=== PATIENT | female | born 2000 | race Caucasian/White ===

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

== ENCOUNTER 2021-02-09 20:36 | Emergency (ER) | payer OTHER ==
[2021-02-09 20:55] VITALS: TEMP 98.6
[2021-02-09] MEDS ORDERED: ACETAMINOPHEN TAB 325 MG TAB PO STA (21:36)
[2021-02-09] MEDS ORDERED: IBUPROFEN 600 MG TAB PO STA (21:36)
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
--- NOTE | 2021-02-09 21:41 | XR ---
EXAMINATION TYPE: XR lumbar spine 2 or 3V DATE OF EXAM: 02/09/2021 COMPARISON: 07/15/2020 HISTORY: Trauma. Back pain. TECHNIQUE: 3 views FINDINGS: Lumbar vertebra have normal alignment. Posterior elements are intact. Disc spaces are jona l. Sacroiliac joints appear normal. IMPRESSION: Normal lumbar spine. No change.
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
[2021-02-09] MEDS ORDERED: BACITRACIN OINT 1 EACH PACKET TOPICAL ONE (22:26)
[2021-02-09 22:51] VITALS: BP 128/78; PULSE 87; RESP 16
[2021-02-10] MEDS ORDERED: MUPIROCIN 2% OINT 22 GM TUBE TOPICAL ONE (22:30)
== END 2021-02-09 22:51 | disposition home or self-care (01) ==
LOC: EC 20:36
DX: S60.222A Contusion of left hand, initial encounter (principal); S39.012A Strain of muscle, fascia and tendon of lower back, initial encounter; Z88.0 Allergy status to penicillin; Z87.891 Personal history of nicotine dependence; Y04.0XXA Assault by unarmed brawl or fight, initial encounter
CPT/HCPCS: 72100; 73502; 99284

== ENCOUNTER 2021-03-11 23:09 | Emergency (ER) | payer OTHER ==
[2021-03-11 23:29] VITALS: RESP 18; TEMP 98
[2021-03-12] MEDS ORDERED: ONDANSETRON 4 MG/2 ML VIAL IVP STA (00:21)
[2021-03-12] MEDS ORDERED: SODIUM CHLORIDE 0.9% 1,000 ML IV STA (00:21)
[2021-03-12 00:36] LABS: Appearance,Urine Clear (Clear); Basophils # (A) 0.1 k/uL (0-0.2); Basophils % (A) 1 %; Bilirubin,Urine Negative (Negative); Blood,Urine Negative (Negative); Color,Urine Yellow; Eosinophils # (A) 0.2 k/uL (0-0.7); Eosinophils % (A) 2 %; Glucose,Urine (UA) Negative (Negative); HCT 40.5 % (34.0-46.0); Ketones,Urine Negative (Negative); Leukocyte Esterase,Urine Negative (Negative); Lymphocytes # (A) 3.7 k/uL (1.0-4.8); Lymphocytes % (A) 37 %; MCH 29.6 pg (25.0-35.0); MCHC 32.2 g/dL (31.0-37.0); MCV 91.8 fL (80.0-100.0); Monocytes # (A) 0.7 k/uL (0-1.0); Monocytes % (A) 7 %; Neutrophils # (A) 5.2 k/uL (1.3-7.7); Neutrophils % (A) 52 %; Nitrite,Urine Negative (Negative); Platelet Count 277 k/uL (150-450); Protein,Urine Trace (Negative); RBC 4.41 m/uL (3.80-5.40); RDW 12.5 % (11.5-15.5); Specific Gravity,Urine 1.022 (1.001-1.035); Urobilinogen,Urine <2.0 mg/dL (<2.0)
[2021-03-12 00:55] LABS: ALT 11 U/L (4-34); AST 23 U/L (14-36); African American GFR (CKD) >90 (>60 ml/min/1.73 sqM); Albumin 4.4 g/dL (3.5-5.0); Alkaline Phosphatase 58 U/L (38-126); Anion Gap 7 mmol/L; Blood Urea Nitrogen 6 mg/dL (7-17); Calcium 9.3 mg/dL (8.4-10.2); Carbon Dioxide 25 mmol/L (22-30); Chloride 106 mmol/L (98-107); Glucose 94 mg/dL (74-99); Lipase 46 U/L (23-300); Non-African American GFR(CKD) >90 (>60 ml/min/1.73 sqM); Potassium 4.1 mmol/L (3.5-5.1); Sodium 138 mmol/L (137-145); Total Bilirubin 0.3 mg/dL (0.2-1.3); Total Protein 7.2 g/dL (6.3-8.2)
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
[2021-03-12] MEDS ORDERED: ONDANSETRON 4 MG ODT STARTER PACK 2 TAB BTL PO STA (01:07)
[2021-03-12] MEDS ORDERED: diphenhydrAMINE 50 MG/ML 1 ML VIAL IVP STA (01:10)
[2021-03-12] MEDS ORDERED: METOCLOPRAMIDE 5 MG/ML 2 ML VIAL IVP STA (01:10)
[2021-03-12 01:29] VITALS: BP 99/64; PULSE 61
== END 2021-03-12 01:29 | disposition home or self-care (01) ==
LOC: EC 23:09
DX: R11.2 Nausea with vomiting, unspecified (principal); R53.1 Weakness; R42 Dizziness and giddiness; F41.9 Anxiety disorder, unspecified; F32.9 Major depressive disorder, single episode, unspecified; F17.200 Nicotine dependence, unspecified, uncomplicated; Z20.822 Contact with and (suspected) exposure to COVID-19; Z88.0 Allergy status to penicillin
CPT/HCPCS: 36415; 80053; 83690; 85025; 81003; 81025; 87635; 99284; 96374; 96375 ×2; J1200; J2765; J2405; S0119

== ENCOUNTER 2021-03-22 12:18 | Emergency (ER) | payer OTHER ==
[2021-03-22 13:02] VITALS: TEMP 97.6
--- NOTE | 2021-03-22 13:44 | ED ---
General Adult HPI - General Chief complaint: Dizziness Stated complaint: syncope Time Seen by Provider: 03/22/21 13:33 Source: patient, family, RN notes reviewed Mode of arrival: wheelchair Limitations: no limitations - History of Present Illness Initial comments: Patient is a pleasant 20-year-old female presenting to the emergency department following syncopal episode. Patient was outside this morning holding her horse when she suddenly felt lightheaded and dizzy and then did pass out. This was witnessed. Patient did strike the back of her head on cement. Patient did have some ringing in her ears. Patient does have some discomfort in the back of her head. No neck or back pain. No chest pain or dyspnea. No abdominal pain. Patient has had some nausea and dry heaves following this. Patient has had recent ER visit for nausea and vomiting. Patient states she has had decreased oral intake recently. Patient does feel somewhat dehydrated. Patient states she did have similar symptoms around age 14 also associated with dehydration and stress. No weakness. - Related Data Previous Rx's Medication Instructions Recorded Cyclobenzaprine [Flexeril] 10 mg PO TID #14 tab 08/11/20 Ibuprofen 800 mg PO Q6HR PRN #20 tablet 08/11/20 Ibuprofen [Motrin] 600 mg PO Q8HR PRN #20 tab 02/09/21 Ondansetron [Zofran ODT] 4 mg PO Q8HR PRN #10 tab 03/12/21 Allergies Allergy/AdvReac Type Severity Reaction Status Date / Time Penicillins Allergy Unknown Verified 03/22/21 13:02 Review of Systems ROS Statement: Those systems with pertinent positive or pertinent negative responses have been documented in the HPI. ROS Other: All systems not noted in ROS Statement are negative. Constitutional: Denies: fever Eyes: Denies: eye pain ENT: Denies: ear pain Respiratory: Denies: cough Cardiovascular: Denies: chest pain Endocrine: Denies: fatigue Gastrointestinal: Reports: nausea. Denies: abdominal pain Genitourinary: Denies: dysuria Musculoskeletal: Denies: back pain Skin: Denies: rash Neurological: Reports: as per HPI. Denies: weakness, confusion Past Medical History Past Medical History: No Reported History Additional Past Medical History / Comment(s): Concussion, compression fracture of lumbar vertebrae History of Any Multi-Drug Resistant Organisms: None Reported Past Surgical History: No Surgical Hx Reported Additional Past Surgical History / Comment(s): strabismus eye surgery Past Psychological History: Anxiety, Depression Smoking Status: Current some day smoker Past Alcohol Use History: None Reported Past Drug Use History: None Reported General Exam Limitations: no limitations General appearance: alert, in no apparent distress Head exam: Present: normocephalic, other (Mild tenderness occipital) Eye exam: Present: normal appearance, PERRL, EOMI. Absent: nystagmus ENT exam: Present: normal oropharynx Neck exam: Present: normal inspection. Absent: tenderness Respiratory exam: Present: normal lung sounds bilaterally Cardiovascular Exam: Present: regular rate, normal rhythm GI/Abdominal exam: Present: soft. Absent: distended, tenderness, guarding, rebound, rigid Extremities exam: Present: normal inspection, full ROM. Absent: tenderness Back exam: Absent: tenderness Neurological exam: Present: alert, CN II-XII intact. Absent: motor sensory deficit Expanded Neurological exam: Present: protecting the airway Speech: Present: fluid speech Cranial nerves: EOM's Intact: Normal, Facial Sensation: Normal Sensory exam: Upper Extremity Light Touch: Normal, Lower Extremity Light Touch: Normal Motor strength exam: RUE: 5, LUE: 5, RLE: 5, LLE: 5 Eye Response: (4) open spontaneously Motor Response: (6) obeys commands Verbal Response: (5) oriented Psychiatric exam: Present: normal affect, normal mood Skin exam: Present: normal color Course Vital Signs 03/22/21 03/22/21 03/22/21 12:55 14:07 14:43 Temperature 97.6 F Pulse Rate 104 H 70 77 Respiratory 18 16 16 Rate Blood Pressure 94/62 107/59 111/68 O2 Sat by Pulse 100 100 98 Oximetry EKG Findings - EKG Comments: EKG Findings:: Normal sinus rhythm with rate of 68. PA 124. QRS 84. QT 36. QTc 410. Normal axis. Normal QRS. No acute ST change. Medical Decision Making - Medical Decision Making Patient reevaluated and feeling better following fluid bolus. Patient and family are updated on results and need for follow-up. Patient states Dr. Handy did notify her she would be her doctor to age 22. - Lab Data Result diagrams: 03/22/21 13:56 03/22/21 13:56 Lab Results 03/22/21 03/22/21 03/22/21 Range/Units 13:56 13:56 13:56 WBC 10.4 (4.0-11.0) k/uL RBC 5.00 (3.80-5.40) m/uL Hgb 14.9 (11.4-16.0) gm/dL Hct 45.6 (34.0-46.0) % MCV 91.2 (80.0-100.0) fL MCH 29.7 (25.0-35.0) pg MCHC 32.6 (31.0-37.0) g/dL RDW 12.4 (11.5-15.5) % Plt Count 250 (150-450) k/uL MPV 6.6 Neutrophils % 72 % Lymphocytes % 21 % Monocytes % 4 % Eosinophils % 1 % Basophils % 1 % Neutrophils # 7.5 (1.3-7.7) k/uL Lymphocytes # 2.1 (1.0-4.8) k/uL Monocytes # 0.5 (0-1.0) k/uL Eosinophils # 0.1 (0-0.7) k/uL Basophils # 0.1 (0-0.2) k/uL PT 10.1 (9.0-12.0) sec INR 0.9 (<1.2) APTT 22.6 (22.0-30.0) sec Sodium 141 (137-145) mmol/L Potassium 4.8 (3.5-5.1) mmol/L Chloride 105 (98-107) mmol/L Carbon Dioxide 27 (22-30) mmol/L Anion Gap 9 mmol/L BUN 8 (7-17) mg/dL Creatinine 0.62 (0.52-1.04) mg/dL Est GFR (CKD-EPI)AfAm >90 (>60 ml/min/1.73 sqM) Est GFR (CKD-EPI)NonAf >90 (>60 ml/min/1.73 sqM) Glucose 91 (74-99) mg/dL Calcium 9.8 (8.4-10.2) mg/dL Magnesium 2.2 (1.6-2.3) mg/dL Total Bilirubin 0.5 (0.2-1.3) mg/dL AST 25 (14-36) U/L ALT 13 (4-34) U/L Alkaline Phosphatase 52 (38-126) U/L Troponin I (0.000-0.034) ng/mL Total Protein 8.2 (6.3-8.2) g/dL Albumin 4.9 (3.5-5.0) g/dL HCG, Qual Not Detected 03/22/21 Range/Units 13:56 WBC (4.0-11.0) k/uL RBC (3.80-5.40) m/uL Hgb (11.4-16.0) gm/dL Hct (34.0-46.0) % MCV (80.0-100.0) fL MCH (25.0-35.0) pg MCHC (31.0-37.0) g/dL RDW (11.5-15.5) % Plt Count (150-450) k/uL MPV Neutrophils % % Lymphocytes % % Monocytes % % Eosinophils % % Basophils % % Neutrophils # (1.3-7.7) k/uL Lymphocytes # (1.0-4.8) k/uL Monocytes # (0-1.0) k/uL Eosinophils # (0-0.7) k/uL Basophils # (0-0.2) k/uL PT (9.0-12.0) sec INR (<1.2) APTT (22.0-30.0) sec Sodium (137-145) mmol/L Potassium (3.5-5.1) mmol/L Chloride (98-107) mmol/L Carbon Dioxide (22-30) mmol/L Anion Gap mmol/L BUN (7-17) mg/dL Creatinine (0.52-1.04) mg/dL Est GFR (CKD-EPI)AfAm (>60 ml/min/1.73 sqM) Est GFR (CKD-EPI)NonAf (>60 ml/min/1.73 sqM) Glucose (74-99) mg/dL Calcium (8.4-10.2) mg/dL Magnesium (1.6-2.3) mg/dL Total Bilirubin (0.2-1.3) mg/dL AST (14-36) U/L ALT (4-34) U/L Alkaline Phosphatase (38-126) U/L Troponin I <0.012 (0.000-0.034) ng/mL Total Protein (6.3-8.2) g/dL Albumin (3.5-5.0) g/dL HCG, Qual - Radiology Data Radiology results: report reviewed (Computed tomography scan of the brain reveals no acute process), image reviewed (Chest x-ray shows no acute process) Disposition Clinical Impression: Syncope Disposition: HOME SELF-CARE Condition: Stable Instructions (If sedation given, give patient instructions): Syncope (ED) Additional Instructions: Please do follow-up with your primary care physician in the next day or 2 for recheck. Avoid any activities that could cause injury including riding horses or driving a vehicle or other similar until released by your doctor. Return for passing out, headache or confusion, weakness, worsening or change in symptoms or any other concerns. Is patient prescribed a controlled substance at d/c from ED?: No Referrals: Nichelle Handy MD [Primary Care Provider] - 1-2 days Time of Disposition: 15:10
[2021-03-22 14:04] LABS: Basophils # (A) 0.1 k/uL (0-0.2); Basophils % (A) 1 %; Eosinophils # (A) 0.1 k/uL (0-0.7); Eosinophils % (A) 1 %; HCT 45.6 % (34.0-46.0); HGB 14.9 gm/dL (11.4-16.0); Lymphocytes # (A) 2.1 k/uL (1.0-4.8); Lymphocytes % (A) 21 %; MCH 29.7 pg (25.0-35.0); MCHC 32.6 g/dL (31.0-37.0); MCV 91.2 fL (80.0-100.0); Mean Platelet Volume 6.6; Monocytes # (A) 0.5 k/uL (0-1.0); Monocytes % (A) 4 %; Neutrophils # (A) 7.5 k/uL (1.3-7.7); Neutrophils % (A) 72 %; Platelet Count 250 k/uL (150-450); RDW 12.4 % (11.5-15.5); WBC 10.4 k/uL (4.0-11.0)
[2021-03-22] MEDS: SODIUM CHLORIDE 0.9% 1,000 ML IV STA (14:06)
[2021-03-22 14:08] VITALS: RESP 16
[2021-03-22 14:12] LABS: HCG,Qualitative Serum Not Detected
[2021-03-22 14:15] LABS: ALT 13 U/L (4-34); AST 25 U/L (14-36); African American GFR (CKD) >90 (>60 ml/min/1.73 sqM); Albumin 4.9 g/dL (3.5-5.0); Alkaline Phosphatase 52 U/L (38-126); Anion Gap 9 mmol/L; Blood Urea Nitrogen 8 mg/dL (7-17); Calcium 9.8 mg/dL (8.4-10.2); Carbon Dioxide 27 mmol/L (22-30); Chloride 105 mmol/L (98-107); Glucose 91 mg/dL (74-99); Magnesium 2.2 mg/dL (1.6-2.3); Non-African American GFR(CKD) >90 (>60 ml/min/1.73 sqM); Potassium 4.8 mmol/L (3.5-5.1); Sodium 141 mmol/L (137-145); Total Bilirubin 0.5 mg/dL (0.2-1.3); Total Protein 8.2 g/dL (6.3-8.2)
[2021-03-22 14:16] LABS: INR 0.9 (<1.2); Partial Thromboplastin Time 22.6 sec (22.0-30.0); Prothrombin Time 10.1 sec (9.0-12.0)
--- NOTE | 2021-03-22 14:29 | CT ---
EXAMINATION TYPE: CT brain wo con DATE OF EXAM: 03/22/2021 COMPARISON: November 22, 2020 HISTORY: syncope CT DLP: 1040.4 mGycm. Automated Exposure Control for Dose Reduction was Utilized. TECHNIQUE: CT scan of the head is performed without contrast. FINDINGS: There is no acute intracranial hemorrhage, mass effect, or midline shift identified. The ventricles and sulci are within normal limits in size. Lanier-white matter differentiation is maintain ed. The calvarium is intact. The globes are intact and the visualized sinuses are clear. Nasal sept um deviated to left of midline. IMPRESSION: Unremarkable study. No significant change from prior.
--- NOTE | 2021-03-22 14:31 | XR ---
EXAMINATION TYPE: XR chest 2V DATE OF EXAM: 03/22/2021 COMPARISON: Chest x-ray dated 08/11/2020 HISTORY: Syncope TECHNIQUE: Frontal and lateral views of the chest are obtained. FINDINGS: There is no focal air space opacity, pleural effusion, or pneumothorax seen. The cardiac silhouette size is within normal limits. There are overlying leads. There is a slight spinal curvatu re. The osseous structures are intact. IMPRESSION: No acute cardiopulmonary process.
[2021-03-22 14:44] VITALS: BP 111/68; PULSE 77
== END 2021-03-22 15:19 | disposition home or self-care (01) ==
LOC: EC 12:18
DX: R55 Syncope and collapse (principal); F32.9 Major depressive disorder, single episode, unspecified; F17.200 Nicotine dependence, unspecified, uncomplicated
CPT/HCPCS: 70450; 71046; 80053; 83735; 84484; 84703; 85025; 85610; 85730; 93005; 96360; 99284

== ENCOUNTER 2021-04-06 03:44 | Emergency (ER) | payer OTHER ==
[2021-04-06 03:54] VITALS: RESP 18; TEMP 98.1
[2021-04-06] MEDS ORDERED: cefTRIAXone 250 MG VIAL IM STA (04:41)
[2021-04-06] MEDS ORDERED: AZITHROMYCIN 250 MG TAB PO STA (04:47)
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
[2021-04-06 05:44] VITALS: BP 121/64; PULSE 68
== END 2021-04-06 05:44 | disposition home or self-care (01) ==
LOC: EC 03:44
DX: T74.21XA Adult sexual abuse, confirmed, initial encounter (principal); F17.200 Nicotine dependence, unspecified, uncomplicated; Z88.0 Allergy status to penicillin
CPT/HCPCS: 81025; 99284; 96372; J0696

== ENCOUNTER → 2021-08-01 | Outpatient (CLI) | payer OTHER ==
[2021-08-02 10:34] LABS: HIV 2 AB Non-Reactive (Non-Reactive); HIV AB P24 Non-Reactive (Non-Reactive); HIV P24 AG Non-Reactive (Non-Reactive)
== END | disposition home or self-care (01) ==
LOC: LABWHC1 12:46
PROVIDERS: ATTEND Pediatrics Adolescent Medicine
DX: T76.21XD Adult sexual abuse, suspected, subsequent encounter (principal)
CPT/HCPCS: 36415; 87390

== ENCOUNTER 2021-09-20 20:40 | Emergency (ER) | payer OTHER ==
[2021-09-20 21:52] VITALS: BP 122/86; PULSE 79; RESP 22; TEMP 98.8
[2021-09-20 22:21] LABS: Appearance,Urine Clear (Clear); Bacteria,Urine Rare /hpf; Bilirubin,Urine Negative (Negative); Blood,Urine Negative (Negative); Color,Urine Yellow; Glucose,Urine (UA) Negative (Negative); Ketones,Urine 1+ (Negative); Leukocyte Esterase,Urine Small (Negative); Mucus,Urine Many /hpf; Nitrite,Urine Negative (Negative); PH, Urine 6.5 (5.0-8.0); Protein,Urine Trace (Negative); RBC,Urine 1 /hpf (0-5); Specific Gravity,Urine 1.032 (1.001-1.035); Squamous Epithelial Cell,Urine 6 /hpf (0-4); Urobilinogen,Urine <2.0 mg/dL (<2.0); WBC,Urine 2 /hpf (0-5)
== END 2021-09-21 01:22 | disposition left against medical advice (07) ==
LOC: EC 20:40
DX: R68.83 Chills (without fever) (principal); Z20.822 Contact with and (suspected) exposure to COVID-19; Z53.21 Procedure and treatment not carried out due to patient leaving prior to being seen by health care provider
CPT/HCPCS: 81001; 81025; 87635; 99499

== ENCOUNTER 2021-12-19 22:57 | Emergency (ER) | payer OTHER ==
[2021-12-19 23:12] VITALS: RESP 16; TEMP 99
[2021-12-19 23:51] LABS: Appearance,Urine Cloudy (Clear); Bacteria,Urine Rare /hpf; Bilirubin,Urine Negative (Negative); Blood,Urine Negative (Negative); Color,Urine Yellow; Glucose,Urine (UA) Negative (Negative); Ketones,Urine Negative (Negative); Leukocyte Esterase,Urine Negative (Negative); Mucus,Urine Many /hpf; Nitrite,Urine Negative (Negative); Protein,Urine Trace (Negative); RBC,Urine 1 /hpf (0-5); Specific Gravity,Urine 1.026 (1.001-1.035); Squamous Epithelial Cell,Urine 12 /hpf (0-4); WBC,Urine 2 /hpf (0-5)
[2021-12-20] MEDS ORDERED: SODIUM CHLORIDE 0.9% 1,000 ML IV STA (00:56)
[2021-12-20] MEDS ORDERED: ONDANSETRON 4 MG/2 ML VIAL IVP STA (00:56)
--- NOTE | 2021-12-20 01:47 | US ---
EXAMINATION TYPE: US pelvic complete DATE OF EXAM: 12/20/2021 COMPARISON: NONE CLINICAL HISTORY: left sided pelvic pain. LLQ pain TECHNIQUE: Transabdominal (TA Date of LMP: 11/12/21 EXAM MEASUREMENTS: Uterus: 7.4 x 2.5 x 4.5 cm Endometrial Stripe: 1.0 cm Right Ovary: 2.5 x 2.4 x 2.4 cm Left Ovary: 2.5 x 1.7 x 2.0 cm 1. Uterus: Anteverted wnl 2. Endometrium: wnl 3. Right Ovary: Appears wnl; venous and arterial flow noted 4. Left Ovary: Appears wnl; venous and arterial flow noted Spectral, color and waveform doppler imaging shows good arterial and venous flow within the ovaries ; there is no evidence for ovarian torsion. 5. Bilateral Adnexa: wnl 6. Posterior cul-de-sac: wnl IMPRESSION: Normal uterus and endometrium. No evidence of ovarian torsion. No adnexal mass..
[2021-12-20 01:51] LABS: Basophils # (A) 0.1 k/uL (0-0.2); Basophils % (A) 1 %; Eosinophils # (A) 0.3 k/uL (0-0.7); Eosinophils % (A) 3 %; HCT 40.2 % (34.0-46.0); HGB 13.9 gm/dL (11.4-16.0); Lymphocytes # (A) 1.7 k/uL (1.0-4.8); Lymphocytes % (A) 16 %; MCH 32.6 pg (25.0-35.0); MCHC 34.5 g/dL (31.0-37.0); MCV 94.6 fL (80.0-100.0); Mean Platelet Volume 6.9; Monocytes # (A) 0.7 k/uL (0-1.0); Monocytes % (A) 6 %; Neutrophils % (A) 74 %; Platelet Count 195 k/uL (150-450); RBC 4.25 m/uL (3.80-5.40); RDW 11.6 % (11.5-15.5); WBC 10.9 k/uL (4.0-11.0)
[2021-12-20 02:02] LABS: ALT 15 U/L (4-34); AST 28 U/L (14-36); African American GFR (CKD) >90 (>60 ml/min/1.73 sqM); Albumin 4.2 g/dL (3.5-5.0); Alkaline Phosphatase 57 U/L (38-126); Amylase 47 U/L (30-110); Anion Gap 9 mmol/L; Blood Urea Nitrogen 8 mg/dL (7-17); Calcium 8.6 mg/dL (8.4-10.2); Carbon Dioxide 24 mmol/L (22-30); Chloride 102 mmol/L (98-107); Glucose 90 mg/dL (74-99); Lipase 40 U/L (23-300); Non-African American GFR(CKD) >90 (>60 ml/min/1.73 sqM); Potassium 4.2 mmol/L (3.5-5.1); Sodium 135 mmol/L (137-145); Total Bilirubin 0.6 mg/dL (0.2-1.3); Total Protein 7.5 g/dL (6.3-8.2)
[2021-12-20] MEDS ORDERED: KETOROLAC 15 MG/ML 1 ML VIAL IVP STA (02:31)
[2021-12-20 02:41] LABS: Influenza A Not Detected (Not Detectd); Influenza B Not Detected (Not Detectd)
[2021-12-20 03:12] LABS: Erythrocyte Sedimentation Rate 4 mm/hr (0-20)
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
[2021-12-20 03:41] VITALS: BP 109/79; PULSE 78
== END 2021-12-20 03:39 | disposition home or self-care (01) ==
LOC: EC 22:57
DX: R10.32 Left lower quadrant pain (principal); F32.A Depression, unspecified; F41.9 Anxiety disorder, unspecified; Z87.891 Personal history of nicotine dependence; Z79.899 Other long term (current) drug therapy
CPT/HCPCS: 36415; 80053; 85652; 82150; 83690; 85025; 81001; 81025; 87808; 87491; 87591; 87636; 93975; 76856; 99284; 96374; 96375; 96361 ×2; J2405; J1885

== ENCOUNTER 2021-12-22 06:02 | Emergency (ER) | payer OTHER ==
[2021-12-22 06:12] VITALS: RESP 18; TEMP 98.3
[2021-12-22] MEDS ORDERED: SODIUM CHLORIDE 0.9% 2,000 ML IV STA (06:25)
[2021-12-22] MEDS ORDERED: KETOROLAC 15 MG/ML 1 ML VIAL IVP STA (06:25)
[2021-12-22] MEDS ORDERED: FAMOTIDINE 20 MG/2 ML VIAL IV STA (06:26)
--- NOTE | 2021-12-22 06:31 | ED ---
Abdominal Pain HPI - General Chief Complaint: Abdominal Pain Stated Complaint: Abdominal Pain Time Seen by Provider: 12/22/21 06:04 Source: patient, EMS, RN notes reviewed Mode of arrival: EMS Limitations: no limitations - History of Present Illness Initial Comments: 21-year-old female presents emergency Department with chief complaint of nausea vomiting diarrhea. Patient states that she had multiple episodes of emesis morning. She states it which bile at this time. She states she had diffuse abdominal cramping states is no localized pain. Patient states she did receive Zofran by EMS which she feels greatly improved. Patient's was seen here 3 days ago after she had some left lower quadrant abdominal pain and nausea. Patient had complete workup with no acute findings. Patient states she did have a bunch of diarrhea this morning denies any melena hematochezia. Patient offers no complaints no prior abdominal surgeries denies any chance . - Related Data Previous Rx's Medication Instructions Recorded Cyclobenzaprine [Flexeril] 10 mg PO TID #14 tab 08/11/20 Ibuprofen 800 mg PO Q6HR PRN #20 tablet 08/11/20 Ibuprofen [Motrin] 600 mg PO Q8HR PRN #20 tab 02/09/21 Ondansetron [Zofran ODT] 4 mg PO Q8HR PRN #10 tab 03/12/21 levonorgestreL [Plan B One-Step] 1.5 mg PO ONCE #1 tablet 04/06/21 Ondansetron Odt [Zofran Odt] 4 mg PO Q8HR PRN #10 tab 12/22/21 Allergies Allergy/AdvReac Type Severity Reaction Status Date / Time Penicillins Allergy Unknown Verified 12/19/21 23:12 Review of Systems ROS Statement: Those systems with pertinent positive or pertinent negative responses have been documented in the HPI. ROS Other: All systems not noted in ROS Statement are negative. Past Medical History Past Medical History: No Reported History Additional Past Medical History / Comment(s): Concussion, compression fracture of lumbar vertebrae History of Any Multi-Drug Resistant Organisms: None Reported Past Surgical History: No Surgical Hx Reported Additional Past Surgical History / Comment(s): strabismus eye surgery Past Psychological History: Anxiety, Depression Smoking Status: Current some day smoker Past Alcohol Use History: Occasional Past Drug Use History: Marijuana General Exam Limitations: no limitations General appearance: alert, in no apparent distress Head exam: Present: atraumatic, normocephalic, normal inspection Eye exam: Present: normal appearance, PERRL, EOMI. Absent: scleral icterus, conjunctival injection, periorbital swelling ENT exam: Present: normal exam, mucous membranes moist Neck exam: Present: normal inspection, full ROM. Absent: tenderness, meningismus, lymphadenopathy Respiratory exam: Present: normal lung sounds bilaterally. Absent: respiratory distress, wheezes, rales, rhonchi, stridor Cardiovascular Exam: Present: regular rate, normal rhythm, normal heart sounds. Absent: systolic murmur, diastolic murmur, rubs, gallop, clicks GI/Abdominal exam: Present: soft, tenderness (Minimal diffuse), normal bowel sounds. Absent: distended, guarding, rebound, rigid Back exam: Absent: CVA tenderness (R), CVA tenderness (L) Neurological exam: Present: alert Skin exam: Present: warm, dry, intact, normal color. Absent: rash Course Vital Signs 12/22/21 12/22/21 06:08 07:05 Temperature 98.3 F Pulse Rate 96 93 Respiratory 18 18 Rate Blood Pressure 114/76 138/71 O2 Sat by Pulse 99 98 Oximetry Medical Decision Making - Medical Decision Making Patient's labs are essentially unremarkable. Patient feels improved after antiemetics and fluids. Patient discharged with Zofran patient has gastroenteritis return parameters were discussed. - Lab Data Result diagrams: 12/22/21 06:36 12/22/21 06:36 Lab Results 12/22/21 12/22/21 12/22/21 Range/Units 06:36 06:36 06:42 WBC 9.2 (4.0-11.0) k/uL RBC 4.41 (3.80-5.40) m/uL Hgb 13.8 (11.4-16.0) gm/dL Hct 41.4 (34.0-46.0) % MCV 93.9 (80.0-100.0) fL MCH 31.3 (25.0-35.0) pg MCHC 33.3 (31.0-37.0) g/dL RDW 11.7 (11.5-15.5) % Plt Count 188 (150-450) k/uL MPV 7.1 Neutrophils % 72 % Lymphocytes % 13 % Monocytes % 9 % Eosinophils % 4 % Basophils % 0 % Neutrophils # 6.6 (1.3-7.7) k/uL Lymphocytes # 1.2 (1.0-4.8) k/uL Monocytes # 0.9 (0-1.0) k/uL Eosinophils # 0.3 (0-0.7) k/uL Basophils # 0.0 (0-0.2) k/uL Sodium 136 L (137-145) mmol/L Potassium 3.6 (3.5-5.1) mmol/L Chloride 106 (98-107) mmol/L Carbon Dioxide 23 (22-30) mmol/L Anion Gap 7 mmol/L BUN 5 L (7-17) mg/dL Creatinine 0.52 (0.52-1.04) mg/dL Est GFR (CKD-EPI)AfAm >90 (>60 ml/min/1.73 sqM) Est GFR (CKD-EPI)NonAf >90 (>60 ml/min/1.73 sqM) Glucose 115 H (74-99) mg/dL Calcium 8.2 L (8.4-10.2) mg/dL Total Bilirubin 0.3 (0.2-1.3) mg/dL AST 25 (14-36) U/L ALT 19 (4-34) U/L Alkaline Phosphatase 52 (38-126) U/L Total Protein 6.4 (6.3-8.2) g/dL Albumin 3.4 L (3.5-5.0) g/dL Lipase 21 L (23-300) U/L Urine Color Yellow Urine Appearance Cloudy H (Clear) Urine pH 6.5 (5.0-8.0) Ur Specific [place] 1.020 (1.001-1.035) Urine Protein Trace H (Negative) Urine Glucose (UA) Negative (Negative) Urine Ketones Negative (Negative) Urine Blood Negative (Negative) Urine Nitrite Negative (Negative) Urine Bilirubin Negative (Negative) Urine Urobilinogen <2.0 (<2.0) mg/dL Ur Leukocyte Esterase Trace H (Negative) Urine RBC 2 (0-5) /hpf Urine WBC 12 H (0-5) /hpf Ur Squamous Epith Cells 10 H (0-4) /hpf Urine Bacteria Rare H (None) /hpf Urine Mucus Few H (None) /hpf Urine HCG, Qual (Not Detectd) 12/22/21 Range/Units 06:42 WBC (4.0-11.0) k/uL RBC (3.80-5.40) m/uL Hgb (11.4-16.0) gm/dL Hct (34.0-46.0) % MCV (80.0-100.0) fL MCH (25.0-35.0) pg MCHC (31.0-37.0) g/dL RDW (11.5-15.5) % Plt Count (150-450) k/uL MPV Neutrophils % % Lymphocytes % % Monocytes % % Eosinophils % % Basophils % % Neutrophils # (1.3-7.7) k/uL Lymphocytes # (1.0-4.8) k/uL Monocytes # (0-1.0) k/uL Eosinophils # (0-0.7) k/uL Basophils # (0-0.2) k/uL Sodium (137-145) mmol/L Potassium (3.5-5.1) mmol/L Chloride (98-107) mmol/L Carbon Dioxide (22-30) mmol/L Anion Gap mmol/L BUN (7-17) mg/dL Creatinine (0.52-1.04) mg/dL Est GFR (CKD-EPI)AfAm (>60 ml/min/1.73 sqM) Est GFR (CKD-EPI)NonAf (>60 ml/min/1.73 sqM) Glucose (74-99) mg/dL Calcium (8.4-10.2) mg/dL Total Bilirubin (0.2-1.3) mg/dL AST (14-36) U/L ALT (4-34) U/L Alkaline Phosphatase (38-126) U/L Total Protein (6.3-8.2) g/dL Albumin (3.5-5.0) g/dL Lipase (23-300) U/L Urine Color Urine Appearance (Clear) Urine pH (5.0-8.0) Ur Specific [place] (1.001-1.035) Urine Protein (Negative) Urine Glucose (UA) (Negative) Urine Ketones (Negative) Urine Blood (Negative) Urine Nitrite (Negative) Urine Bilirubin (Negative) Urine Urobilinogen (<2.0) mg/dL Ur Leukocyte Esterase (Negative) Urine RBC (0-5) /hpf Urine WBC (0-5) /hpf Ur Squamous Epith Cells (0-4) /hpf Urine Bacteria (None) /hpf Urine Mucus (None) /hpf Urine HCG, Qual Not Detected (Not Detectd) Disposition Clinical Impression: Gastroenteritis Disposition: HOME SELF-CARE Condition: Stable Instructions (If sedation given, give patient instructions): Gastroenteritis (ED) Additional Instructions: Please return to the Emergency Department if symptoms worsen or any other concerns. Prescriptions: Ondansetron Odt [Zofran Odt] 4 mg PO Q8HR PRN #10 tab PRN Reason: Nausea Is patient prescribed a controlled substance at d/c from ED?: No Referrals: Nichelle Handy MD [Primary Care Provider] - 1-2 days Time of Disposition: 08:05
[2021-12-22 06:51] LABS: Basophils % (A) 0 %; Eosinophils # (A) 0.3 k/uL (0-0.7); Eosinophils % (A) 4 %; HCT 41.4 % (34.0-46.0); HGB 13.8 gm/dL (11.4-16.0); Lymphocytes # (A) 1.2 k/uL (1.0-4.8); Lymphocytes % (A) 13 %; MCH 31.3 pg (25.0-35.0); MCHC 33.3 g/dL (31.0-37.0); MCV 93.9 fL (80.0-100.0); Mean Platelet Volume 7.1; Monocytes # (A) 0.9 k/uL (0-1.0); Monocytes % (A) 9 %; Neutrophils # (A) 6.6 k/uL (1.3-7.7); Neutrophils % (A) 72 %; Platelet Count 188 k/uL (150-450); RBC 4.41 m/uL (3.80-5.40); RDW 11.7 % (11.5-15.5); WBC 9.2 k/uL (4.0-11.0)
[2021-12-22 07:07] VITALS: BP 138/71; PULSE 93
[2021-12-22 07:07] LABS: ALT 19 U/L (4-34); AST 25 U/L (14-36); African American GFR (CKD) >90 (>60 ml/min/1.73 sqM); Albumin 3.4 g/dL (3.5-5.0); Alkaline Phosphatase 52 U/L (38-126); Anion Gap 7 mmol/L; Blood Urea Nitrogen 5 mg/dL (7-17); Calcium 8.2 mg/dL (8.4-10.2); Carbon Dioxide 23 mmol/L (22-30); Chloride 106 mmol/L (98-107); Glucose 115 mg/dL (74-99); Lipase 21 U/L (23-300); Non-African American GFR(CKD) >90 (>60 ml/min/1.73 sqM); Potassium 3.6 mmol/L (3.5-5.1); Sodium 136 mmol/L (137-145); Total Bilirubin 0.3 mg/dL (0.2-1.3); Total Protein 6.4 g/dL (6.3-8.2)
[2021-12-22 07:16] LABS: Appearance,Urine Cloudy (Clear); Bacteria,Urine Rare /hpf; Bilirubin,Urine Negative (Negative); Blood,Urine Negative (Negative); Color,Urine Yellow; Glucose,Urine (UA) Negative (Negative); Ketones,Urine Negative (Negative); Leukocyte Esterase,Urine Trace (Negative); Mucus,Urine Few /hpf; Nitrite,Urine Negative (Negative); PH, Urine 6.5 (5.0-8.0); Protein,Urine Trace (Negative); RBC,Urine 2 /hpf (0-5); Squamous Epithelial Cell,Urine 10 /hpf (0-4); Urobilinogen,Urine <2.0 mg/dL (<2.0); WBC,Urine 12 /hpf (0-5)
[2021-12-22] MEDS ORDERED: diphenhydrAMINE 50 MG/ML 1 ML VIAL IVP STA (07:20)
[2021-12-22] MEDS ORDERED: METOCLOPRAMIDE 5 MG/ML 2 ML VIAL IVP STA (07:20)
== END 2021-12-22 08:51 | disposition home or self-care (01) ==
LOC: EC 06:02
DX: K52.9 Noninfective gastroenteritis and colitis, unspecified (principal); F41.9 Anxiety disorder, unspecified; F32.A Depression, unspecified; F17.200 Nicotine dependence, unspecified, uncomplicated; F12.90 Cannabis use, unspecified, uncomplicated; Z88.0 Allergy status to penicillin
CPT/HCPCS: 99284; 96374; 96375 ×3; 36415; 80053; 83690; 85025; 81001; 81025; 87086; J1200; J2765; J1885

== ENCOUNTER → 2022-05-29 | Outpatient (CLI) | payer OTHER ==
--- NOTE | 2022-05-29 15:01 | XR ---
EXAMINATION TYPE: XR forearm RT DATE OF EXAM: 05/29/2022 COMPARISON: NONE HISTORY: Pain Two views of the forearm demonstrate that the osseous structures appear to be intact and the joint sp aces appear to be preserved. There is no acute fracture or dislocation. IMPRESSION: 1. No acute fracture or dislocation
--- NOTE | 2022-05-29 15:01 | XR ---
EXAMINATION TYPE: XR humerus RT DATE OF EXAM: 05/29/2022 COMPARISON: NONE HISTORY: Pain TECHNIQUE: 2 views submitted. FINDINGS: The osseous structures are intact and the joint spaces are preserved. IMPRESSION: 1. No acute fracture or dislocation.
--- NOTE | 2022-05-29 15:02 | XR ---
EXAMINATION TYPE: XR elbow complete RT DATE OF EXAM: 05/29/2022 COMPARISON: NONE HISTORY: Pain FINDINGS: Three views of the elbow demonstrate no pathologic joint effusion. The osseous structures are intact . There is no acute fracture or dislocation. IMPRESSION: 1. No acute fracture or dislocation. If symptoms persist follow-up study in 7 to 10 days could be ob tained.
--- NOTE | 2022-05-29 15:03 | XR ---
EXAMINATION TYPE: XR hand complete RT DATE OF EXAM: 05/29/2022 COMPARISON: NONE HISTORY: Pain TECHNIQUE: Three views are submitted. FINDINGS: The osseous structures are intact. The joint spaces are preserved and there is no acute fracture or dislocation. IMPRESSION: 1. No definite acute fracture or dislocation if symptoms persist, follow-up study in 7 to 10 days wo uld be suggested
== END | disposition home or self-care (01) ==
LOC: RADXRMAIN 14:17
PROVIDERS: ATTEND Pediatrics Adolescent Medicine
DX: M25.521 Pain in right elbow (principal); M79.641 Pain in right hand

== ENCOUNTER 2023-04-01 07:40 | Emergency (ER) | payer OTHER ==
--- NOTE | 2023-04-01 08:05 | ED ---
General Adult HPI - General Chief complaint: Urogenital Stated complaint: Poss UTI Time Seen by Provider: 04/01/23 07:56 Source: patient, RN notes reviewed Mode of arrival: ambulatory Limitations: no limitations - History of Present Illness Initial comments: Patient is a 22-year-old female presented to the ER today with a chief complaint of a UTI. Patient states her symptoms have been occurring for the past 2 days. Symptoms include increased frequency, burning with urination and producing little dark urine. Patient states today she started to experience lower back pain. Positive history of UTI. Denies fevers, chills, or nightsweats. - Related Data Previous Rx's Medication Instructions Recorded Cyclobenzaprine [Flexeril] 10 mg PO TID #14 tab 08/11/20 Ibuprofen 800 mg PO Q6HR PRN #20 tablet 08/11/20 Ibuprofen [Motrin] 600 mg PO Q8HR PRN #20 tab 02/09/21 Ondansetron [Zofran ODT] 4 mg PO Q8HR PRN #10 tab 03/12/21 levonorgestreL [Plan B One-Step] 1.5 mg PO ONCE #1 tablet 04/06/21 Ondansetron Odt [Zofran Odt] 4 mg PO Q8HR PRN #10 tab 12/22/21 Nitrofurantoin Monohyd/M-Cryst 100 mg PO Q12HR #14 cap 04/01/23 [Macrobid] Allergies Allergy/AdvReac Type Severity Reaction Status Date / Time Penicillins Allergy Unknown Verified 04/01/23 07:56 Review of Systems ROS Statement: Those systems with pertinent positive or pertinent negative responses have been documented in the HPI. ROS Other: All systems not noted in ROS Statement are negative. Past Medical History Past Medical History: No Reported History Additional Past Medical History / Comment(s): Concussion, compression fracture of lumbar vertebrae History of Any Multi-Drug Resistant Organisms: None Reported Past Surgical History: No Surgical Hx Reported Additional Past Surgical History / Comment(s): strabismus eye surgery Past Psychological History: Anxiety, Depression Smoking Status: Former smoker Past Alcohol Use History: Occasional Past Drug Use History: Marijuana General Exam Limitations: no limitations General appearance: alert, in no apparent distress Respiratory exam: Present: normal lung sounds bilaterally. Absent: respiratory distress, wheezes, rales, rhonchi, stridor Cardiovascular Exam: Present: regular rate, normal rhythm, normal heart sounds. Absent: systolic murmur, diastolic murmur, rubs, gallop, clicks GI/Abdominal exam: Present: soft, normal bowel sounds. Absent: distended, tenderness, guarding, rebound, rigid Back exam: Present: other (negative SUE CVA tenderness) Course Vital Signs 04/01/23 04/01/23 07:51 09:01 Temperature 98.0 F 98 F Pulse Rate 72 73 Respiratory 18 16 Rate Blood Pressure 118/78 121/78 O2 Sat by Pulse 97 98 Oximetry Medical Decision Making - Medical Decision Making Was pt. sent in by a medical professional or institution (, PA, [employer]ANT, urgent care, hospital, or long-term...) When possible be specific @ -No Did you speak to anyone other than the patient for history (EMS, parent, family, police, friend...)? What history was obtained from this source @ -No Did you review nursing and triage notes (agree or disagree)? Why? @ -I reviewed and agree with nursing and triage notes Were old charts reviewed (outside hosp., previous admission, EMS record, old EKG, old radiological studies, urgent care reports/EKG's, long-term records)? Report findings @ -No old charts were reviewed Differential Diagnosis (chest pain, altered mental status, abdominal pain women, abdominal pain men, vaginal bleeding, weakness, fever, dyspnea, syncope, headache, dizziness, GI bleed, back pain, seizure, CVA, palpatations, mental health, musculoskeletal)? @ -Differential Abdominal Pain Women: Appendicitis, Cholecystitis, diverticulosis, ischemic bowel, pancreatitis, hepatitis, UTI, gastroenteritis, AAA, incarcerated hernia, bowel obstruction, constipation, inflammatory bowel, hepatitis, peptic ulcer disease, splenic infarction, perforated viscus, vulvitis, ovarian torsion, PID, kidney stone, placenta abruption, this is not meant to be an all-inclusive listble] EKG interpreted by me (3pts min.). @ -None X-rays interpreted by me (1pt min.). @ -None done CT interpreted by me (1pt min.). @ -None done U/S interpreted by me (1pt. min.). @ -None done What testing was considered but not performed or refused? (CT, X-rays, U/S, labs)? Why? @ -None What meds were considered but not given or refused? Why? @ -None Did you discuss the management of the patient with other professionals (professionals i.e. , PA, [employer]SULTANT, lab, RT, psych nurse, social science teacher, collections curator, teacher, disability insurance hearing officer, housing case manager)? Give summary @ -No Was smoking cessation discussed for >3mins.? @ -No Was critical care preformed (if so, how long)? @ -No Were there social determinants of health that impacted care today? How? (Homelessness, low income, unemployed, alcoholism, drug addiction, transportation, low edu. Level, literacy, decrease access to med. care, group home, rehab)? @ -No Was there de-escalation of care discussed even if they declined (Discuss DNR or withdrawal of care, Hospice)? DNR status @ -No What co-morbidities impacted this encounter? (DM, HTN, Smoking, COPD, CAD, Cancer, CVA, ARF, Chemo, Hep., AIDS, mental health diagnosis, sleep apnea, morbid obesity)? @ -None Was patient admitted / discharged? Hospital course, mention meds given and route, prescriptions, significant lab abnormalities, going to OR and other pertinent info. @ -Discharge patient has evidence of urinary tract infection urine culture was ordered. Patient was started on Macrobid twice a day for 7 days return parameters were discussed. Undiagnosed new problem with uncertain prognosis? @ -No Drug Therapy requiring intensive monitoring for toxicity (Heparin, Nitro, Insulin, Cardizem)? @ -No Were any procedures done? @ -No Diagnosis/symptom? @ -UTI Acute, or Chronic, or Acute on Chronic? @ -Acute Uncomplicated (without systemic symptoms) or Complicated (systemic symptoms)? @ -Uncomplicated Side effects of treatment? @ -No Exacerbation, Progression, or Severe Exacerbation? @ -No Poses a threat to life or bodily function? How? (Chest pain, USA, PA, pneumonia, PE, COPD, DKA, ARF, appy, cholecystitis, CVA, Diverticulitis, Homicidal, Suicidal, threat to staff... and all critical care pts) @ -No - Lab Data Lab Results 04/01/23 04/01/23 Range/Units 08:07 08:07 Urine Color Yellow Urine Appearance Cloudy H (Clear) Urine pH 7.0 (5.0-8.0) Ur Specific [place] 1.013 (1.001-1.035) Urine Protein Negative (Negative) Urine Glucose (UA) Negative (Negative) Urine Ketones Negative (Negative) Urine Blood Trace H (Negative) Urine Nitrite Negative (Negative) Urine Bilirubin Negative (Negative) Urine Urobilinogen <2.0 (<2.0) mg/dL Ur Leukocyte Esterase Large H (Negative) Urine RBC 11 H (0-5) /hpf Urine WBC 114 H (0-5) /hpf Ur Squamous Epith Cells 4 (0-4) /hpf Urine Mucus Occasional H (None) /hpf Urine HCG, Qual Not Detected (Not Detectd) Disposition Clinical Impression: Urinary tract infection Disposition: HOME SELF-CARE Condition: Stable Instructions (If sedation given, give patient instructions): Urinary Tract Infection in Women (ED) Prescriptions: Nitrofurantoin Monohyd/M-Cryst [Macrobid] 100 mg PO Q12HR #14 cap Is patient prescribed a controlled substance at d/c from ED?: No Referrals: None,Stated [Primary Care Provider] - 1-2 days Time of Disposition: 08:57
[2023-04-01 08:46] LABS: Appearance,Urine Cloudy (Clear); Bilirubin,Urine Negative (Negative); Blood,Urine Trace (Negative); Color,Urine Yellow; Glucose,Urine (UA) Negative (Negative); Ketones,Urine Negative (Negative); Leukocyte Esterase,Urine Large (Negative); Mucus,Urine Occasional /hpf; Nitrite,Urine Negative (Negative); Protein,Urine Negative (Negative); RBC,Urine 11 /hpf (0-5); Specific Gravity,Urine 1.013 (1.001-1.035); Squamous Epithelial Cell,Urine 4 /hpf (0-4); Urobilinogen,Urine <2.0 mg/dL (<2.0); WBC,Urine 114 /hpf (0-5)
[2023-04-01 09:02] VITALS: BP 121/78; PULSE 73; RESP 16; TEMP 98
== END 2023-04-01 09:05 | disposition home or self-care (01) ==
LOC: EC 07:40
DX: N39.0 Urinary tract infection, site not specified (principal); F12.90 Cannabis use, unspecified, uncomplicated; Z87.891 Personal history of nicotine dependence; Z88.0 Allergy status to penicillin
CPT/HCPCS: 81001; 81025; 87086; 99283

== ENCOUNTER 2024-04-19 19:51 | Emergency (ER) | payer OTHER ==
[2024-04-19 20:08] VITALS: BP 124/84; TEMP 98.1
[2024-04-19] MEDS: DIPH,PERTUS(ACELL)TETVAC-LF 0.5 ML VIAL IM ONE (21:00)
--- NOTE | 2024-04-19 21:07 | ED ---
General Adult HPI - General Chief complaint: Extremity Injury, Lower Stated complaint: L Finger Injury- 7 weeks preg Time Seen by Provider: 04/19/24 20:09 Source: patient, RN notes reviewed Mode of arrival: ambulatory Limitations: no limitations - History of Present Illness Initial comments: 23-year-old female presenting to the ED with a chief complaint of left hand injury. Patient reports that she was trying to cut a string earlier today which was stuck on the vacuum school cleaner with a paring knife. States that her hand slipped during this causing her to cut her left hand. Following, reports that she has skin glue in the wound closed however has since started to develop pain and swelling of her left hand and notes that she is having pain of her left fourth finger. Of note, patient is currently 7 weeks . Tetanus status unknown. No other injuries at this time. No other complaints. - Related Data Previous Rx's Medication Instructions Recorded Cyclobenzaprine [Flexeril] 10 mg PO TID #14 tab 08/11/20 Ibuprofen 800 mg PO Q6HR PRN #20 tablet 08/11/20 Ibuprofen [Motrin] 600 mg PO Q8HR PRN #20 tab 02/09/21 Ondansetron [Zofran ODT] 4 mg PO Q8HR PRN #10 tab 03/12/21 levonorgestreL [Plan B One-Step] 1.5 mg PO ONCE #1 tablet 04/06/21 Ondansetron Odt [Zofran Odt] 4 mg PO Q8HR PRN #10 tab 12/22/21 Nitrofurantoin Monohyd/M-Cryst 100 mg PO Q12HR #14 cap 04/01/23 [Macrobid] Cephalexin [Keflex] 500 mg PO Q6HR #20 cap 04/19/24 Allergies Allergy/AdvReac Type Severity Reaction Status Date / Time Penicillins Allergy Unknown Verified 04/19/24 20:08 Review of Systems ROS Statement: Those systems with pertinent positive or pertinent negative responses have been documented in the HPI. ROS Other: All systems not noted in ROS Statement are negative. Past Medical History Past Medical History: No Reported History Additional Past Medical History / Comment(s): Concussion, compression fracture of lumbar vertebrae History of Any Multi-Drug Resistant Organisms: None Reported Past Surgical History: No Surgical Hx Reported Additional Past Surgical History / Comment(s): strabismus eye surgery Past Psychological History: Anxiety, Depression Smoking Status: Former smoker Past Alcohol Use History: Occasional Past Drug Use History: Marijuana General Exam Limitations: no limitations General appearance: alert, in no apparent distress Head exam: Present: atraumatic, normocephalic Eye exam: Present: normal appearance Neck exam: Present: normal inspection Respiratory exam: Present: normal lung sounds bilaterally Cardiovascular Exam: Present: regular rate GI/Abdominal exam: Present: soft, normal bowel sounds. Absent: distended, tenderness, guarding, rebound, rigid Extremities exam: Present: other (Good capillary refill of the fingers on the left hand. Radial pulses intact. Hand shows some minimal swelling. Left fourth finger does show pain on passive extension however no significant swe lling, warmth, erythema. ) Skin exam: Present: warm, dry, other (Approximately 2 cm laceration on the palm of her left hand which is loosely approximated with skin glue.) Course Vital Signs 04/19/24 20:03 Temperature 98.1 F Pulse Rate 72 Respiratory 18 Rate Blood Pressure 124/84 O2 Sat by Pulse 100 Oximetry Medical Decision Making - Medical Decision Making Was pt. sent in by a medical professional or institution (, PA, LOT ASSOCIATE, urgent care, hospital, or prison...) When possible be specific @ -No Did you speak to anyone other than the patient for history (EMS, parent, family, police, friend...)? What history was obtained from this source @ -No Did you review nursing and triage notes (agree or disagree)? Why? @ -I reviewed and agree with nursing and triage notes Were old charts reviewed (outside hosp., previous admission, EMS record, old EKG, old radiological studies, urgent care reports/EKG's, prison records)? Report findings @ -No old charts were reviewed Differential Diagnosis (chest pain, altered mental status, abdominal pain women, abdominal pain men, vaginal bleeding, weakness, fever, dyspnea, syncope, headache, dizziness, GI bleed, back pain, seizure, CVA, palpatations, mental health, musculoskeletal)? @ -Differential Musculoskeletal Muscular strain, contusion, ligament sprain, fracture, arthritis, septic arthritis, bursitis, cellulitis, muscle spasm, nerve compression, DVT, arterial occlusion, herpes zoster, electrolyte abnormality, tumor.... This is not meant to be in all inclusive list EKG interpreted by me (3pts min.). @ -None X-rays interpreted by me (1pt min.). @ -None done CT interpreted by me (1pt min.). @ -None done U/S interpreted by me (1pt. min.). @ -None done What testing was considered but not performed or refused? (CT, X-rays, U/S, labs)? Why? @ -Imaging was considered however at this time patient is 7 weeks and would not like to have any imaging performed at this time. What meds were considered but not given or refused? Why? @ -None Did you discuss the management of the patient with other professionals (professionals i.e. Dr., PA, LOT ASSOCIATE, lab, RT, psych nurse, social security assessor, teaching assistant, teacher, chief business development officer, caseworker)? Give summary @ -No Was smoking cessation discussed for >3mins.? @ -No Was critical care preformed (if so, how long)? @ -No Were there social determinants of health that impacted care today? How? (Homelessness, low income, unemployed, alcoholism, drug addiction, transportation, low edu. Level, literacy, decrease access to med. care, fci, rehab)? @ -No Was there de-escalation of care discussed even if they declined (Discuss DNR or withdrawal of care, Hospice)? DNR status @ -No What co-morbidities impacted this encounter? (DM, HTN, Smoking, COPD, CAD, Cancer, CVA, ARF, Chemo, Hep., AIDS, mental health diagnosis, sleep apnea, morbid obesity)? @ -None Was patient admitted / discharged? Hospital course, mention meds given and route, prescriptions, significant lab abnormalities, going to OR and other pertinent info. @ -Discharge 23-year-old female presenting to the ED with a laceration on the palm of her left hand which she closed herself with the skin glue prior to arrival however has since developed pain and swelling of her left hand with pain of her left fourth finger as well. No evidence of flexor tenosynovitis at this time. Patient afebrile and vital signs are stable. Tetanus updated. Provided prescription for Keflex. Provided Tylenol for pain and advised patient to do the same at home. Advised to avoid ibuprofen as she is . Provided re ferral to see hand surgery and advised to follow-up if symptoms are continuous. Discharged home in stable condition. Discussed return precautions with patient who verbalized agreement. Undiagnosed new problem with uncertain prognosis? @ -No Drug Therapy requiring intensive monitoring for toxicity (Heparin, Nitro, Insulin, Cardizem)? @ -No Were any procedures done? @ -No Diagnosis/symptom? @ -Left hand wound Acute, or Chronic, or Acute on Chronic? @ -Acute Uncomplicated (without systemic symptoms) or Complicated (systemic symptoms)? @ -Uncomplicated Side effects of treatment? @ -No Exacerbation, Progression, or Severe Exacerbation? @ -No Poses a threat to life or bodily function? How? (Chest pain, [place], [place], pneumonia, PE, COPD, DKA, ARF, appy, cholecystitis, CVA, Diverticulitis, Homicidal, Suicidal, threat to staff... and all critical care pts) @ -No Disposition Clinical Impression: Laceration of left hand Disposition: HOME SELF-CARE Condition: Good Instructions (If sedation given, give patient instructions): Laceration (ED) Additional Instructions: Please return to the Emergency Department if symptoms worsen or any other concerns. Take Tylenol as needed for pain. Please follow-up with your primary care provider. If symptoms are continuous please follow-up with hand specialist of orthopedics. Prescriptions: Cephalexin [Keflex] 500 mg PO Q6HR #20 cap Is patient prescribed a controlled substance at d/c from ED?: No Referrals: Nadine Edwards FNPBC [Primary Care Provider] - 1-2 days Devi Ambriz DO [Doctor of Osteopathic Medicine] - 1-2 days Time of Disposition: 21:13
[2024-04-19] MEDS: ACETAMINOPHEN TAB 500 MG TAB PO STA (21:13)
[2024-04-19 21:21] VITALS: PULSE 78; RESP 16
== END 2024-04-19 21:20 | disposition home or self-care (01) ==
LOC: EC 19:51
DX: O9A.211 Injury, poisoning and certain other consequences of external causes complicating pregnancy, first trimester (principal); S61.412A Laceration without foreign body of left hand, initial encounter; Z3A.01 Less than 8 weeks gestation of pregnancy; Z88.0 Allergy status to penicillin; Z23 Encounter for immunization; Z87.891 Personal history of nicotine dependence; W26.0XXA Contact with knife, initial encounter
CPT/HCPCS: 90471; 90715; 99283

== ENCOUNTER 2024-11-15 20:25 | Outpatient (CLI) | payer OTHER ==
[2024-11-15] MEDS: LACTATED RINGERS 1,000 ML IV ONE (21:32)
[2024-11-15 22:38] VITALS: BP 127/82; PULSE 83; RESP 16; TEMP 97.6
== END 2024-11-15 22:21 ==
LOC: FBPOP 20:25
PROVIDERS: ATTEND Obstetrics & Gynecology
DX: Z53.9 Procedure and treatment not carried out, unspecified reason (principal)
CPT/HCPCS: 59025; 96360; 84112; G0463; 96365; 99214

== ENCOUNTER 2024-11-23 12:32 | Outpatient (CLI) | payer OTHER ==
[2024-11-23 13:58] VITALS: BP 136/75; PULSE 85; RESP 17; TEMP 96.8
[2024-11-23 14:00] LABS: ALT 9 U/L (4-34); AST 17 U/L (14-36)
== END 2024-11-23 13:30 | disposition home or self-care (01) ==
LOC: FBPOP 12:32
PROVIDERS: ATTEND Obstetrics & Gynecology
DX: Z53.9 Procedure and treatment not carried out, unspecified reason (principal)
CPT/HCPCS: 59025; 36415; 82239; 84450; 84460; G0463; 99213

== ENCOUNTER 2025-02-26 23:46 | Emergency (ER) | payer OTHER ==
--- NOTE | 2025-02-27 00:16 | ED ---
Fall HPI - General Chief Complaint: Fall Stated Complaint: head injury,side pain Source: patient, family, RN notes reviewed Mode of arrival: ambulatory - History of Present Illness Initial Comments: Patient is a 24-year-old female with no known past medical history presenting for fall off her horse about an hour ago. She states that she was riding her horse into the barn when the horse got spooked and she fell off striking her head on the ground. She reports LOC for less than a minute and was not wearing helmet at the time. She states that she also rolled onto some farm equipment. She is concerned that she hit her abdomen pretty hard and she is about 3 months post . She reports nausea, chills, abdominal pain, chest tightness, right-sided rib pain, and headache. She describes her headache as generalized with mild photophobia relating it to a similar feeling from when she had a concussion 2019. She states that she sprained her right ankle in an unrelated injury earlier this morning and hit her left ankle with the fall tonight. MD Complaint: fall - Related Data Home Medications Medication Instructions Recorded Confirmed Pedi Multivit No.25/Folic Acid 1 tab PO DAILY 11/15/24 12/01/24 [Flintstones Multivit Chew Tab] Allergies Allergy/AdvReac Type Severity Reaction Status Date / Time Penicillins Allergy Swelling Verified 02/26/25 23:50 Review of Systems ROS Statement: Those systems with pertinent positive or pertinent negative responses have been documented in the HPI. ROS Other: All systems not noted in ROS Statement are negative. Constitutional: Reports: chills. Denies: fever Eyes: Denies: eye pain, vision change ENT: Denies: hearing loss Respiratory: Denies: cough, dyspnea Cardiovascular: Reports: other (Sinus) Gastrointestinal: Reports: abdominal pain, nausea. Denies: vomiting, hematemesis Genitourinary: Denies: dysuria, hematuria Past Medical History Past Medical History: No Reported History Additional Past Medical History / Comment(s): Concussion, compression fracture of lumbar vertebrae History of Any Multi-Drug Resistant Organisms: None Reported Past Surgical History: No Surgical Hx Reported, Section Additional Past Surgical History / Comment(s): strabismus eye surgery Past Anesthesia/Blood Transfusion Reactions: No Reported Reaction Past Psychological History: Anxiety, Depression Smoking Status: Former smoker Past Alcohol Use History: Occasional Past Drug Use History: Marijuana - Past Family History Mother Family Medical History: No Reported History General Exam Limitations: no limitations General appearance: alert, in no apparent distress Head exam: Present: atraumatic, normocephalic Eye exam: Present: normal appearance, PERRL, EOMI Pupils: Absent: unequal, miosis, mydriatic ENT exam: Present: mucous membranes moist, normal external ear exam Neck exam: Present: normal inspection Respiratory exam: Present: normal lung sounds bilaterally. Absent: respiratory distress, wheezes, rales, rhonchi, stridor, accessory muscle use GI/Abdominal exam: Present: soft, tenderness (Diffuse), normal bowel sounds, other (Abrasion from right mid axillary line to left lower quadrant). Absent: distended, guarding, rebound, rigid Extremities exam: Present: tenderness (Bilateral medial malleoli) Back exam: Present: normal inspection Neurological exam: Present: alert, oriented X3, CN II-XII intact Psychiatric exam: Present: normal affect, normal mood Skin exam: Present: warm, dry, intact Course Vital Signs 02/26/25 23:47 Temperature 98.5 F Pulse Rate 88 Respiratory 18 Rate Blood Pressure 128/94 O2 Sat by Pulse 100 Oximetry Medical Decision Making - Medical Decision Making Was pt. sent in by a medical professional or institution (, PA, ADMINISTRATIVE OFFICER, urgent care, hospital, or alf...) When possible be specific @ -No Did you speak to anyone other than the patient for history (EMS, parent, family, police, friend...)? What history was obtained from this source @ -No Did you review nursing and triage notes (agree or disagree)? Why? @ -I reviewed and agree with nursing and triage notes Were old charts reviewed (outside hosp., previous admission, EMS record, old EKG, old radiological studies, urgent care reports/EKG's, alf records)? Report findings @ -No old charts were reviewed Differential Diagnosis? @ -Differential Headache: Migraine, tension, cluster, carbon monoxide, central venous thrombosis, pension karma temporal arteritis, acute closure glaucoma, intercranial hemorrhage, mastoiditis, sinusitis, head injury, this is not meant to be an all-inclusive list. EKG interpreted by me (3pts min.). @ -None done X-rays interpreted by me (1pt min.). @ -None done CT interpreted by me (1pt min.). @ -No acute intracranial hemorrhage or mass U/S interpreted by me (1pt. min.). @ -None done What testing was considered but not performed or refused? (CT, X-rays, U/S, labs)? Why? @ -Chest and pelvis x-ray not performed due to positive beta-hCG What meds were considered but not given or refused? Why? @ -None Did you discuss the management of the patient with other professionals (professionals i.e. , PA, ADMINISTRATIVE OFFICER, lab, RT, psych nurse, social work professor, technical sales specialist, teacher, administrative officer, residential case manager)? Give summary @ -No Was smoking cessation discussed for >3mins.? @ -No Was critical care preformed (if so, how long)? @ -No Were there social determinants of health that impacted care today? How? (Homelessness, low income, unemployed, alcoholism, drug addiction, t ransportation, low edu. Level, literacy, decrease access to med. care, custodial, rehab)? @ -No Was there de-escalation of care discussed even if they declined (Discuss DNR or withdrawal of care, Hospice)? DNR status @ -No What co-morbidities impacted this encounter? (DM, HTN, Smoking, COPD, CAD, Cancer, CVA, ARF, Chemo, Hep., AIDS, mental health diagnosis, sleep apnea, morbid obesity)? @ -None Was patient admitted / discharged? Hospital course, mention meds given and route, prescriptions, significant lab abnormalities, going to OR and other pertinent info. @ -Patient is a 24-year-old female who presented to the emergency room about an hour after she fell off her horse striking her head on the ground with a reported LOC for approximately 1 minute. She also reports having hit her abdomen and right side on ground. A urinalysis, beta-hCG, CT brain and C-spine, chest x-ray, pelvis x-ray were ordered however chest x-ray pelvis x-ray unable to form due to positive beta-hCG (patient unaware that she was ). CT brain and C-spine showed normal brain/C-spine. Urinalysis showed no blood. Results of beta-hCG discussed with patient and she declined further chest x-ray. Patient was discharged with return precautions discussed. Recommend patient follow-up with PCP in 1 to 2 days. Undiagnosed new problem with uncertain prognosis? @ -No Drug Therapy requiring intensive monitoring for toxicity (Heparin, Nitro, Insulin, Cardizem)? @ -No Were any procedures done? @ -No Diagnosis/symptom? @ -Closed head injury, Acute, or Chronic, or Acute on Chronic? @ -Acute Uncomplicated (without systemic symptoms) or Complicated (systemic symptoms)? @ -Uncomplicated Side effects of treatment? @ -No Exacerbation, Progression, or Severe Exacerbation? @ -No Poses a threat to life or bodily function? How? (Chest pain, [place], [place], pneumonia, PE, COPD, DKA, ARF, appy, cholecystitis, CVA, Diverticulitis, Homicidal, Suicidal, threat to staff... and all critical care pts) @ -No - Lab Data Lab Results 02/27/25 02/27/25 Range/Units 00:29 00:29 Urine Color Yellow Urine Appearance Cloudy H (Clear) Urine pH 6.0 (5.0-8.0) Ur Specific Gordon 1.027 (1.001-1.035) Urine Protein 1+ H (Negative) Urine Glucose (UA) Negative (Negative) Urine Ketones Trace H (Negative) Urine Blood Negative (Negative) Urine Nitrite Negative (Negative) Urine Bilirubin Negative (Negative) Urine Urobilinogen 2.0 (<2.0) mg/dL Ur Leukocyte Esterase Negative (Negative) Urine RBC 2 (0-5) /hpf Urine WBC 6 H (0-5) /hpf Ur Squamous Epith Cells 19 H (0-4) /hpf Urine Mucus Many H (None) /hpf Urine HCG, Qual Detected (Not Detectd) Disposition Clinical Impression: Head injury, closed, with brief LOC, Disposition: HOME SELF-CARE Instructions (If sedation given, give patient instructions): (ED), Head Injury (DC) Additional Instructions: Every disease is a spectrum and a small chance still exists that a serious condition could develop, for this reason, please monitor yourself closely for new, changing or worsening symptoms, symptoms that persist beyond 48 hours, fever, inability to tolerate/keep down fluids or your medications, inability to follow up with outpatient providers as instructed and should you experience these symptoms or should you have any further concerns for your wellbeing please return to the ED or call 911 immediately. Your pain can be treated with ibuprofen and acetaminophen. You can take up to 400-600 mg of ibuprofen (Advil, Motrin) 3 times daily (every 8 hours) but can also use lower doses if this relieves your pain. Some people prefer naproxen (Aleve, Naprosyn) which can be taken in doses of 500 mg up to twice a day. Do not take both of these medicines together, and do not combine either with ketorolac (Toradol), meloxicam (Mobic), or indomethacin (Tivorbex). Some people can develop stomach discomfort with higher doses of either ibuprofen or naproxen, if this develops decrease your dose or stop taking it. If you need to take this dose daily for more than a week, please schedule an appointment for re-evaluation with your PCP. Please take these medications with food. You can take up to 1000 mg of acetaminophen (Tylenol) every 6 hours. Be careful as this is included in some medicines like Nyquil, [place], Percocet, Vicodin, STANBACK, Goody's Powders, and Excedrin. You can also use lidocaine patches for topical pain. You can purchase 4% patches over the counter at most drug stores. These can be helpful for pain from your muscles or bones. PLEASE call your primary care physician as soon as possible to arrange / discuss plan for followup appointment. Appointment in the next 1-3 days is strongly encouraged if possible. PLEASE let us know here before you leave if there is anything further we can do to be of any assistance. Take care and feel Better! Is patient prescribed a controlled substance at d/c from ED?: No Referrals: Avril Grey MD [Emergency Provider] - 1-2 days Time of Disposition: 01:32
[2025-02-27] MEDS: ACETAMINOPHEN TAB 325 MG TAB PO STA (00:30)
[2025-02-27] MEDS: IBUPROFEN 600 MG TAB PO STA (00:31)
[2025-02-27 00:41] LABS: Appearance,Urine Cloudy (Clear); Bilirubin,Urine Negative (Negative); Blood,Urine Negative (Negative); Color,Urine Yellow; Glucose,Urine (UA) Negative (Negative); Ketones,Urine Trace (Negative); Leukocyte Esterase,Urine Negative (Negative); Mucus,Urine Many /hpf; Nitrite,Urine Negative (Negative); Protein,Urine 1+ (Negative); RBC,Urine 2 /hpf (0-5); Specific Gravity,Urine 1.027 (1.001-1.035); Squamous Epithelial Cell,Urine 19 /hpf (0-4); WBC,Urine 6 /hpf (0-5)
--- NOTE | 2025-02-27 01:30 | CT ---
EXAM: CT Head Without Intravenous Contrast CLINICAL HISTORY: ITS.REASON CT Reason: fall TECHNIQUE: Axial computed tomography images of the head/brain without intravenous contrast. CTDI is 45.2 mGy and DLP is 1046 mGy-cm. This CT exam was performed using one or more of the following dose reduction techniques: automated exposure control, adjustment of the mA and/or kV according to patient size, and/or use of iterative reconstruction technique. COMPARISON: No relevant prior studies available. FINDINGS: Brain: Unremarkable. No hemorrhage. No significant white matter disease. No edema. Ventricles: Unremarkable. No ventriculomegaly. Bones/joints: Unremarkable. No acute fracture. Soft tissues: Unremarkable. Sinuses: Unremarkable as visualized. No acute sinusitis. Mastoid air cells: Unremarkable as visualized. No mastoid effusion. IMPRESSION: Normal head/brain CT. EXAM: CT Cervical Spine Without Intravenous Contrast CLINICAL HISTORY: ITS.REASON CT Reason: fall TECHNIQUE: Axial computed tomography images of the cervical spine without intravenous contrast. CTDI is 9.5 mGy and DLP is 289.9 mGy-cm. This CT exam was performed using one or more of the following dose reduction techniques: automated exposure control, adjustment of the mA and/or kV according to patient size, and/or use of iterative reconstruction technique. COMPARISON: No relevant prior studies available. FINDINGS: Vertebrae: Unremarkable. No acute fracture. Discs/spinal canal/neural foramina: No acute findings. No spinal canal stenosis. Soft tissues: Unremarkable. IMPRESSION: Normal cervical spine CT.
[2025-02-27 01:52] VITALS: BP 115/74; PULSE 76; RESP 16; TEMP 99.1
== END 2025-02-27 01:45 | disposition home or self-care (01) ==
LOC: EC 23:46
DX: O99.891 Other specified diseases and conditions complicating pregnancy (principal); S06.9X1A Unspecified intracranial injury with loss of consciousness of 30 minutes or less, initial encounter; S93.401A Sprain of unspecified ligament of right ankle, initial encounter; Z87.891 Personal history of nicotine dependence; Z88.0 Allergy status to penicillin; Z3A.00 Weeks of gestation of pregnancy not specified; W18.39XA Other fall on same level, initial encounter; Y93.52 Activity, horseback riding
CPT/HCPCS: 70450; 72125; 81001; 81025; 99284

== ENCOUNTER 2025-04-15 13:07 | Inpatient (IN) | payer OTHER ==
[2025-04-15 13:54] LABS: Bacteria,Urine Rare /hpf; Bilirubin,Urine Negative (Negative); Blood,Urine Negative (Negative); Color,Urine Light Yellow; Glucose,Urine (UA) Negative (Negative); Ketones,Urine Negative (Negative); Leukocyte Esterase,Urine Large (Negative); Mucus,Urine Few /hpf; Nitrite,Urine Negative (Negative); PH, Urine 6.5 (5.0-8.0); Protein,Urine Negative (Negative); RBC,Urine 1 /hpf (0-5); Specific Gravity,Urine 1.023 (1.001-1.035); Squamous Epithelial Cell,Urine 1 /hpf (0-4); Urobilinogen,Urine 2.0 mg/dL (<2.0); WBC,Urine 118 /hpf (0-5)
--- NOTE | 2025-04-15 14:58 | ED ---
General Adult HPI - General Chief complaint: Urogenital Stated complaint: 13 weeks preg, urogenital Time Seen by Provider: 04/15/25 13:47 Source: patient, RN notes reviewed Mode of arrival: ambulatory Limitations: no limitations - History of Present Illness Initial comments: 24-year-old female presents to the emergency department for a possible urinary tract infection. Patient notes that she is 12 to 13 weeks . 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 Patient notes that she had a urinary tract infection at the beginning of this month and was on Keflex for this. She notes that she did have some improvement but then felt that she had a yeast infection as she had white discharge and itching. She used Monistat for this. She notes that she felt this was improving until today when she started experiencing burning with urination and pain in the right flank. She denies any known fever but does admit to chills. - Related Data Home Medications Medication Instructions Recorded Confirmed Pedi Multivit No.25/Folic Acid 1 tab PO DAILY 11/15/24 04/15/25 [Flintstones Multivit Chew Tab] Allergies Allergy/AdvReac Type Severity Reaction Status Date / Time Penicillins Allergy Swelling Verified 02/26/25 23:50 Review of Systems ROS Statement: Those systems with pertinent positive or pertinent negative responses have been documented in the HPI. ROS Other: All systems not noted in ROS Statement are negative. Past Medical History Past Medical History: No Reported History Additional Past Medical History / Comment(s): Concussion, compression fracture of lumbar vertebrae History of Any Multi-Drug Resistant Organisms: None Reported Past Surgical History: No Surgical Hx Reported, Section Additional Past Surgical History / Comment(s): strabismus eye surgery Past Anesthesia/Blood Transfusion Reactions: No Reported Reaction Past Psychological History: Anxiety, Depression Smoking Status: Former smoker Past Alcohol Use History: Occasional Past Drug Use History: Marijuana - Past Family History Mother Family Medical History: No Reported History General Exam Limitations: no limitations General appearance: alert, in no apparent distress Head exam: Present: atraumatic, normocephalic, normal inspection Eye exam: Present: normal appearance, PERRL, EOMI. Absent: scleral icterus, conjunctival injection, periorbital swelling ENT exam: Present: normal exam, mucous membranes moist Neck exam: Present: normal inspection. Absent: tenderness, meningismus, lymphadenopathy Respiratory exam: Present: normal lung sounds bilaterally. Absent: respiratory distress, wheezes, rales, rhonchi, stridor Cardiovascular Exam: Present: regular rate, normal rhythm, normal heart sounds. Absent: systolic murmur, diastolic murmur, rubs, gallop, clicks GI/Abdominal exam: Present: soft, normal bowel sounds. Absent: distended, tenderness, guarding, rebound, rigid Extremities exam: Present: normal inspection, full ROM, normal capillary refill. Absent: tenderness, pedal edema, joint swelling, calf tenderness Back exam: Present: CVA tenderness (R) Neurological exam: Present: alert, oriented X3 Psychiatric exam: Present: normal affect, normal mood Skin exam: Present: warm, dry, intact, normal color. Absent: rash Course Vital Signs 04/15/25 04/15/25 13:22 18:34 Temperature 98.2 F Pulse Rate 74 81 Respiratory 16 18 Rate Blood Pressure 121/76 130/85 O2 Sat by Pulse 99 99 Oximetry Medical Decision Making - Medical Decision Making Was pt. sent in by a medical professional or institution (PRIYA Mendoza, ENGINEERING COORDINATOR, urgent care, hospital, or senior living...) When possible be specific @ -No Did you speak to anyone other than the patient for history (EMS, parent, family, police, friend...)? What history was obtained from this source @ -No Did you review nursing and triage notes (agree or disagree)? Why? @ -I reviewed and agree with nursing and triage notes Were old charts reviewed (outside hosp., previous admission, EMS record, old EKG, old radiological studies, urgent care reports/EKG's, senior living records)? Report findings @ -No old charts were reviewed Differential Diagnosis (chest pain, altered mental status, abdominal pain women, abdominal pain men, vaginal bleeding, weakness, fever, dyspnea, syncope, headache, dizziness, GI bleed, back pain, seizure, CVA, palpatations, mental hea lth, musculoskeletal)? @ -Differential Back Pain: Strain, zoster, cauda equina syndrome, epidural abscess, vertebral osteomyelitis, discitis, fracture, subluxation, disc herniation, DJD, spinal stenosis, dissection, AAA, pancreatitis, peptic ulcer disease, pyelonephritis, kidney stone, this is not meant to be an all-inclusive list. EKG interpreted by me (3pts min.). @ -[None X-rays interpreted by me (1pt min.). @ -None done CT interpreted by me (1pt min.). @ -None done U/S interpreted by me (1pt. min.). @ -Ultrasound of the renals and bladder revealed no evidence of acute process What testing was considered but not performed or refused? (CT, X-rays, U/S, labs)? Why? @ -None What meds were considered but not given or refused? Why? @ -None Did you discuss the management of the patient with other professionals (professionals i.e. , PA, ENGINEERING COORDINATOR, lab, RT, psych nurse, social media editor, volunteer specialist, teacher, submarine advisory team watch officer, case filler)? Give summary @ -Dr. Stiles was accepting of the admission Was smoking cessation discussed for >3mins.? @ -No Was critical care preformed (if so, how long)? @ -No Were there social determinants of health that impacted care today? How? (Homelessness, low income, unemployed, alcoholism, drug addiction, transportation, low edu. Level, literacy, decrease access to med. care, fdc, rehab)? @ -No Was there de-escalation of care discussed even if they declined (Discuss DNR or withdrawal of care, Hospice)? DNR status @ -No What co-morbidities impacted this encounter? (DM, HTN, Smoking, COPD, CAD, Cancer, CVA, ARF, Chemo, Hep., AIDS, mental health diagnosis, sleep apnea, morbid obesity)? @ -None Was patient admitted / discharged? Hospital course, mention meds given and route, prescriptions, significant lab abnormalities, going to OR and other pert inent info. @ -[Admitted. Patient presented the emergency department for evaluation of flank pain and urinary symptoms. Patient has leukocytosis at 13. Hemoglobin is stable. CMP is nonactionable. UA revealsLarge leukocyte esterase, 118 WBCs. Patient had a quantitative hCG of 90,200. heart sounds were obtained by family [facility]. With the patient's symptomatology and gravid status. The patient will be admitted to the hospital for pyelonephritis. She is understanding agreeable with plan. Patient stable at time of admission. Case discussed with Dr. Stiles. Undiagnosed new problem with uncertain prognosis? @ -No Drug Therapy requiring intensive monitoring for toxicity (Heparin, Nitro, Insulin, Cardizem)? @ -No Were any procedures done? @ -No Diagnosis/symptom? @ -Pyelonephritis Acute, or Chronic, or Acute on Chronic? @ -Acute Uncomplicated (without systemic symptoms) or Complicated (systemic symptoms)? @ -Uncomplicated Side effects of treatment? @ -No Exacerbation, Progression, or Severe Exacerbation? @ -No Poses a threat to life or bodily function? How? (Chest pain, [place], PR, pneumonia, PE, COPD, DKA, ARF, appy, cholecystitis, CVA, Diverticulitis, Homicidal, Suicidal, threat to staff... and all critical care pts) @ -No - Lab Data Result diagrams: 04/16/25 09:33 04/16/25 09:33 Lab Results 04/15/25 04/15/25 04/15/25 Range/Units 13:26 13:26 15:10 WBC 13.36 H (4.50-10.00) 10*3/uL RBC 4.51 (4.10-5.20) 10*6/uL Hgb 14.0 (12.0-15.0) g/dL Hct 40.7 (37.2-46.3) % MCV 90.2 (80.0-97.0) fL MCH 31.0 (27.0-32.0) pg MCHC 34.4 (32.0-37.0) g/dL Plt Count 286 (140-440) 10*3/uL MPV 9.1 L (9.5-12.2) fL Immature Gran % (Auto) 0.4 % Neutrophils % 66.0 % Lymphocytes % 23.1 % Monocytes % 6.6 % Eosinophils % 3.2 % Basophils % 0.7 % Immature Gran # 0.06 H (0.00-0.04) 10*3/uL Neutrophils # 8.82 H (1.80-7.70) 10*3/uL Lymphocytes # 3.08 (0.90-5.00) 10*3/uL Monocytes # 0.88 (0.20-1.00) 10*3/uL Eosinophils # 0.43 H (0.04-0.35) 10*3/uL Basophils # 0.09 (0.00-0.10) 10*3/uL Sodium (137-145) mmol/L Potassium (3.5-5.1) mmol/L Chloride (98-107) mmol/L Carbon Dioxide (22-30) mmol/L Anion Gap mmol/L BUN (7-17) mg/dL Creatinine (0.52-1.04) mg/dL Est GFR (CKD-EPI)AfAm (>60 ml/min/1.73 sqM) Est GFR (CKD-EPI)NonAf (>60 ml/min/1.73 sqM) Glucose (74-99) mg/dL Calcium (8.4-10.2) mg/dL Total Bilirubin (0.2-1.3) mg/dL AST (14-36) U/L ALT (4-34) U/L Alkaline Phosphatase (38-126) U/L Total Protein (6.3-8.2) g/dL Albumin (3.5-5.0) g/dL HCG, Quant mIU/mL Urine Color Light Yellow Urine Appearance Cloudy H (Clear) Urine pH 6.5 (5.0-8.0) Ur Specific [place] 1.023 (1.001-1.035) Urine Protein Negative (Negative) Urine Glucose (UA) Negative (Negative) Urine Ketones Negative (Negative) Urine Blood Negative (Negative) Urine Nitrite Negative (Negative) Urine Bilirubin Negative (Negative) Urine Urobilinogen 2.0 (<2.0) mg/dL Ur Leukocyte Esterase Large H (Negative) Urine RBC 1 (0-5) /hpf Urine WBC 118 H (0-5) /hpf Ur Squamous Epith Cells 1 (0-4) /hpf Urine Bacteria Rare H (None) /hpf Urine Mucus Few H (None) /hpf Urine HCG, Qual Detected (Not Detectd) 04/15/25 Range/Units 15:10 WBC (4.50-10.00) 10*3/uL RBC (4.10-5.20) 10*6/uL Hgb (12.0-15.0) g/dL Hct (37.2-46.3) % MCV (80.0-97.0) fL MCH (27.0-32.0) pg MCHC (32.0-37.0) g/dL Plt Count (140-440) 10*3/uL MPV (9.5-12.2) fL Immature Gran % (Auto) % Neutrophils % % Lymphocytes % % Monocytes % % Eosinophils % % Basophils % % Immature Gran # (0.00-0.04) 10*3/uL Neutrophils # (1.80-7.70) 10*3/uL Lymphocytes # (0.90-5.00) 10*3/uL Monocytes # (0.20-1.00) 10*3/uL Eosinophils # (0.04-0.35) 10*3/uL Basophils # (0.00-0.10) 10*3/uL Sodium 135 L (137-145) mmol/L Potassium 4.3 (3.5-5.1) mmol/L Chloride 104 (98-107) mmol/L Carbon Dioxide 21 L (22-30) mmol/L Anion Gap 10 mmol/L BUN 7 (7-17) mg/dL Creatinine 0.43 L (0.52-1.04) mg/dL Est GFR (CKD-EPI)AfAm >90 (>60 ml/min/1.73 sqM) Est GFR (CKD-EPI)NonAf >90 (>60 ml/min/1.73 sqM) Glucose 88 (74-99) mg/dL Calcium 9.8 (8.4-10.2) mg/dL Total Bilirubin 0.5 (0.2-1.3) mg/dL AST 19 (14-36) U/L ALT 14 (4-34) U/L Alkaline Phosphatase 62 (38-126) U/L Total Protein 7.4 (6.3-8.2) g/dL Albumin 4.4 (3.5-5.0) g/dL HCG, Quant 84669.1 mIU/mL Urine Color Urine Appearance (Clear) Urine pH (5.0-8.0) Ur Specific [place] (1.001-1.035) Urine Protein (Negative) Urine Glucose (UA) (Negative) Urine Ketones (Negative) Urine Blood (Negative) Urine Nitrite (Negative) Urine Bilirubin (Negative) Urine Urobilinogen (<2.0) mg/dL Ur Leukocyte Esterase (Negative) Urine RBC (0-5) /hpf Urine WBC (0-5) /hpf Ur Squamous Epith Cells (0-4) /hpf Urine Bacteria (None) /hpf Urine Mucus (None) /hpf Urine HCG, Qual (Not Detectd) Disposition Clinical Impression: Pyelonephritis affecting Disposition: ADMITTED IP TO THIS HOSP Condition: Stable Is patient prescribed a controlled substance at d/c from ED?: No
[2025-04-15 15:18] LABS: Basophils # (A) 0.09 10*3/uL (0.00-0.10); Basophils % (A) 0.7 %; Eosinophils # (A) 0.43 10*3/uL (0.04-0.35); Eosinophils % (A) 3.2 %; HCT 40.7 % (37.2-46.3); HGB 14.0 g/dL (12.0-15.0); Lymphocytes # (A) 3.08 10*3/uL (0.90-5.00); Lymphocytes % (A) 23.1 %; MCH 31.0 pg (27.0-32.0); MCHC 34.4 g/dL (32.0-37.0); MCV 90.2 fL (80.0-97.0); Monocytes # (A) 0.88 10*3/uL (0.20-1.00); Monocytes % (A) 6.6 %; Neutrophils # (A) 8.82 10*3/uL (1.80-7.70); Neutrophils % (A) 66.0 %; Platelet Count 286 10*3/uL (140-440); RBC 4.51 10*6/uL (4.10-5.20); RDW 12.2 % (11.5-14.5); WBC 13.36 10*3/uL (4.50-10.00)
[2025-04-15 15:42] LABS: ALT 14 U/L (4-34); African American GFR (CKD) >90 (>60 ml/min/1.73 sqM); Albumin 4.4 g/dL (3.5-5.0); Anion Gap 10 mmol/L; Blood Urea Nitrogen 7 mg/dL (7-17); Calcium 9.8 mg/dL (8.4-10.2); Carbon Dioxide 21 mmol/L (22-30); Chloride 104 mmol/L (98-107); Glucose 88 mg/dL (74-99); Non-African American GFR(CKD) >90 (>60 ml/min/1.73 sqM); Sodium 135 mmol/L (137-145); Total Protein 7.4 g/dL (6.3-8.2)
[2025-04-15 15:51] LABS: AST 19 U/L (14-36); Alkaline Phosphatase 62 U/L (38-126); Potassium 4.3 mmol/L (3.5-5.1)
--- NOTE | 2025-04-15 15:55 | US ---
EXAMINATION TYPE: US kidneys/renal and bladder DATE OF EXAM: 04/15/2025 COMPARISON: NONE CLINICAL INDICATION: Female, 24 years old with history of flank pain, 13 wks; TECHNIQUE: Grayscale imaging of the bilateral kidneys and urinary bladder: FINDINGS: EXAM MEASUREMENTS: Right Kidney: 10.7 x 4.8 x 5.2 cm Left Kidney: 10.5 x 5.3 x 4.8 cm Right Kidney: wnl Left Kidney: wnl Bladder: not fully distended Bilateral Jets seen: yes IMPRESSION: No evidence for obstructive uropathy or renal calculus. No evidence for acute process. [facility], , 04/15/2025 3:53 PM
[2025-04-15 16:52] LABS: HCG,Quantitative Serum 90200.1 mIU/mL
[2025-04-15] MEDS: SODIUM CHLORIDE 0.9% 1,000 ML IV ONE (17:41)
[2025-04-15] MEDS ORDERED: NALOXONE 0.4 MG/ML 1 ML VIAL IV PRN (17:55)
[2025-04-15] MEDS: SODIUM CHLORIDE 0.9% 1,000 ML IV SCH (19:23)
[2025-04-15] MEDS: ACETAMINOPHEN TAB 325 MG TAB PO PRN (22:03)
[2025-04-16 09:55] LABS: Basophils # (A) 0.11 10*3/uL (0.00-0.10); Basophils % (A) 1.1 %; Eosinophils # (A) 0.33 10*3/uL (0.04-0.35); Eosinophils % (A) 3.3 %; HCT 38.4 % (37.2-46.3); HGB 13.4 g/dL (12.0-15.0); Lymphocytes # (A) 2.48 10*3/uL (0.90-5.00); Lymphocytes % (A) 24.9 %; MCH 31.4 pg (27.0-32.0); MCHC 34.9 g/dL (32.0-37.0); MCV 89.9 fL (80.0-97.0); Monocytes # (A) 0.67 10*3/uL (0.20-1.00); Monocytes % (A) 6.7 %; Neutrophils # (A) 6.32 10*3/uL (1.80-7.70); Neutrophils % (A) 63.6 %; Platelet Count 276 10*3/uL (140-440); RBC 4.27 10*6/uL (4.10-5.20); RDW 12.1 % (11.5-14.5); WBC 9.95 10*3/uL (4.50-10.00)
[2025-04-16 10:09] LABS: African American GFR (CKD) >90 (>60 ml/min/1.73 sqM); Anion Gap 10 mmol/L; Blood Urea Nitrogen 3 mg/dL (7-17); Calcium 9.2 mg/dL (8.4-10.2); Carbon Dioxide 20 mmol/L (22-30); Chloride 105 mmol/L (98-107); Glucose 81 mg/dL (74-99); Non-African American GFR(CKD) >90 (>60 ml/min/1.73 sqM); Potassium 4.0 mmol/L (3.5-5.1); Sodium 135 mmol/L (137-145)
--- NOTE | 2025-04-16 10:47 | US ---
EXAMINATION TYPE: Transabdominal DATE OF EXAM: 04/16/2025 10:30 AM COMPARISON: None Relevant CLINICAL INDICATION: Female, 24 years old with history of 12 weeks pyelonephritis; Patient d enies any signs or symptoms relating to the pelvis/. Patient stated kidney pain. Hx C-sectio n TECHNIQUE: Transabdominal (TA) with grayscale and color Doppler imaging including first trimester pre gnancy. FINDINGS: EXAM MEASUREMENTS: GESTATIONAL AGE / DATING Physician Established: (11 weeks/0 days) EDC: Dates by LMP: (11 weeks/0 days) EDC: Dates by First Scan: (11 weeks/0 days) EDC: MATERNAL ANATOMY Uterus: 14.0 x 7.2 x 8.5 cm Right Ovary: 2.9 x 1.5 x 2.5 cm Left Ovary: 2.5 x 1.9 x 1.7 cm Post CDS / Adnexa: WNL Presence of free fluid: No Presence of corpus luteal cyst: No Presence of subchorionic bleed: No GESTATION / SURVEY CRL: 4.1 cm (11 weeks/0 days) Gestational Sac morphology: WNL Gestational Sac MSD: NA ( weeks/ days) Yolk Sac (normal less than 6mm): 0.5 Cardiac Activity/Heart Rate: 160 bpm Rhythm: Normal IUP: Viable IUP Nuchal Translucency 10-14wks (normal less than 3mm): 1.07 mm Age Appropriate Anatomy Cord Insertion: Visualized Limbs: Visualized Calvarium: Visualized Date of LMP: Unknown Beta HcG (if available): Not done IMPRESSION: Single live intrauterine gestation with ultrasound age 11 weeks 0 days [facility], , 04/16/2025 10:45 AM
--- NOTE | 2025-04-16 11:12 | P.OBCN ---
History of Present Illness Consult date: 04/16/25 Reason for consult: other () Chief complaint: Dysuria, back pain History of present illness: This is a 24-year-old G2, P1 at approximately 12 weeks of gestation that presented to the emergency department with complaints of increasing low back pain. Chills were appreciated throughout the day. Patient states she was seen in the urgent care on 616 for complaints of urinary tract infection symptoms, she was given Keflex p.o. Patient states that she did continue to take the Keflex when symptoms increased burning urinary urgency increased along with "kidney pain". Patient then presented to the emergency department for concerns of a kidney infection. Patient denies fevers but is does admit to chills off and on. Patient states Thursday of this week she did note yeast like symptoms in addition, she took an [id number] Monistat with some relief of her symptoms. Denies vaginal discharge or odor does admit to external erythema. 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 Primary section, solitario breech presentation 11/2024 #2. Current Review of Systems Constitutional: Reports chills, Denies fatigue, Denies fever Ears, nose, mouth and throat: Denies headache Cardiovascular: Denies leg edema Respiratory: Denies dyspnea Gastrointestinal: Denies nausea, Denies vomiting Genitourinary: Reports Past Medical History Past Medical History: No Reported History Additional Past Medical History / Comment(s): Concussion, compression fracture of lumbar vertebrae History of Any Multi-Drug Resistant Organisms: None Reported Past Surgical History: Section Additional Past Surgical History / Comment(s): strabismus eye surgery Past Anesthesia/Blood Transfusion Reactions: No Reported Reaction Past Psychological History: Anxiety, Depression Smoking Status: Former smoker Past Alcohol Use History: Occasional Past Drug Use History: Marijuana - Past Family History Mother Family Medical History: No Reported History Medications and Allergies Home Medications Medication Instructions Recorded Confirmed Type Pedi Multivit No.25/Folic Acid 1 tab PO DAILY 11/15/24 04/15/25 History [Flintstones Multivit Chew Tab] Allergies Allergy/AdvReac Type Severity Reaction Status Date / Time Penicillins Allergy Swelling Verified 02/26/25 23:50 Exam Osteopathic Statement: *. No significant issues noted on an osteopathic structural exam other than those noted in the History and Physical/Consult. Vital Signs Temp Pulse Pulse Resp BP BP Pulse Ox 06/29/25 08:00 98.3 F 60 14 120/75 99 04/16/25 00:02 97.9 F 62 18 124/77 98 04/15/25 18:34 81 18 130/85 99 04/15/25 13:22 98.2 F 74 16 121/76 99 Intake and Output 04/15/25 04/16/25 04/16/25 22:59 06:59 14:59 Intake Total 118 Balance 118 Intake: Oral 118 Other: Voiding Method Toilet # Voids 2 Weight 70.307 kg Targeted physical exam is performed this date in general is well-nourished well- developed female in no acute distress, patient appears comfortable in bed. Ultrasound was just completing exam upon my entry to the room. Results Result Diagrams: 04/16/25 09:33 04/16/25 09:33 Abnormal Lab Results - Last 24 Hours (Table) 04/15/25 04/15/25 04/15/25 Range/Units 13:26 15:10 15:10 WBC 13.36 H (4.50-10.00) 10*3/uL MPV 9.1 L (9.5-12.2) fL Immature Gran # 0.06 H (0.00-0.04) 10*3/uL Neutrophils # 8.82 H (1.80-7.70) 10*3/uL Eosinophils # 0.43 H (0.04-0.35) 10*3/uL Basophils # (0.00-0.10) 10*3/uL Sodium 135 L (137-145) mmol/L Carbon Dioxide 21 L (22-30) mmol/L BUN (7-17) mg/dL Creatinine 0.43 L (0.52-1.04) mg/dL Urine Appearance Cloudy H (Clear) Ur Leukocyte Esterase Large H (Negative) Urine WBC 118 H (0-5) /hpf Urine Bacteria Rare H (None) /hpf Urine Mucus Few H (None) /hpf 04/16/25 04/16/25 Range/Units 09:33 09:33 WBC (4.50-10.00) 10*3/uL MPV 9.4 L (9.5-12.2) fL Immature Gran # (0.00-0.04) 10*3/uL Neutrophils # (1.80-7.70) 10*3/uL Eosinophils # (0.04-0.35) 10*3/uL Basophils # 0.11 H (0.00-0.10) 10*3/uL Sodium 135 L (137-145) mmol/L Carbon Dioxide 20 L (22-30) mmol/L BUN 3 L (7-17) mg/dL Creatinine 0.41 L (0.52-1.04) mg/dL Urine Appearance (Clear) Ur Leukocyte Esterase (Negative) Urine WBC (0-5) /hpf Urine Bacteria (None) /hpf Urine Mucus (None) /hpf Assessment and Plan (1) Narrative/Plan: Bedside ultrasound performed, heart tones appreciated Current Visit: Yes Status: Acute Code(s): Z34.90 - ENCNTR FOR SUPRVSN OF NORMAL , UNSP, UNSP TRIMESTER SNOMED Code(s): 76271900 (2) Pyelonephritis affecting Narrative/Plan: Awaiting internal medicine input Current Visit: Yes Status: Acute Code(s): O23.00 - INFECTIONS OF KIDNEY IN , UNSPECIFIED TRIMESTER SNOMED Code(s): 95565720822807 Plan: 24-year-old G2, P1 at approximately 12 weeks of presenting with symptoms of pyelonephritis. Ultrasound performed for viability this morning, awaiting report Patient has established care with [facility], discussed continued care and follow-up. Questions are answered.
--- NOTE | 2025-04-16 20:30 | HP ---
HISTORY AND PHYSICAL CHIEF COMPLAINT: Back pain and possible pyelonephritis. HISTORY OF PRESENT ILLNESS: This is a 24-year-old woman with a past medical history of multiple medical problems including 12-13 weeks . She was complaining of urinary symptoms of UTI. The patient was treated with Keflex in the outpatient setting in the Urgent Care Center. Because of lack of improvement, the patient came to [facility]. The patient was noted to have UTI with elevated WBC. YARN EXAMINER SKEINS consultation is in progress for the . The patient is started on broad-spectrum IV antibiotics. The patient is closely monitored. There is no history of any fever, rigors or chills at this time. PAST MEDICAL HISTORY: Reviewed include concussion. Rest of the chart was also reviewed. HOME MEDICATIONS: Reviewed include multivitamins. ALLERGIES: Penicillin. FAMILY HISTORY: No history of heart disease or strokes in the family. SOCIAL HISTORY: Previous history of smoking. Occasional alcohol. THC, per chart. REVIEW OF SYSTEMS: Fourteen-point review of systems negative except as mentioned earlier. PHYSICAL EXAMINATION: VITAL SIGNS: Pulse 96, blood pressure 120/70, respirations 14. HEENT: Conjunctivae normal. NECK: No jugular venous distention. CARDIOVASCULAR: S1, S2 ABDOMEN: Soft, minimal tenderness in the right loin area. NERVOUS SYSTEM: Nonfocal LABORATORY DATA: Labs are reviewed. ASSESSMENT: 1. Acute pyelonephritis with back pain with failure of outpatient treatment. 2. Thirteen weeks . 3. History of concussion and compression fractures of lumbar vertebra. 4. Anxiety, depression. RECOMMENDATIONS AND DISCUSSION: This 24-year-old woman presented with multiple complex medical issues. We will monitor the patient closely. I would recommend to continue the Rocephin and obtain urine and blood cultures. Repeat labs. Closely follow with YARN EXAMINER SKEINS. Guarded prognosis because of multiple complex medical issues. Symptomatic treatment. Further recommendations to follow. See orders for further details. MMODL / IJN: [id number] /
[2025-04-17] MEDS: PHENAZOPYRIDINE 200 MG TAB PO PRN (00:35)
[2025-04-17] MEDS ORDERED: ACETAMINOPHEN IV (For NPO) 1,000 MG in EMPTY BAG 1 BAG IVPB PRN (01:17)
[2025-04-17 07:30] LABS: Basophils # (A) 0.11 10*3/uL (0.00-0.10); Basophils % (A) 1.0 %; Eosinophils # (A) 0.43 10*3/uL (0.04-0.35); Eosinophils % (A) 4.0 %; HCT 35.4 % (37.2-46.3); HGB 12.1 g/dL (12.0-15.0); Lymphocytes # (A) 3.03 10*3/uL (0.90-5.00); Lymphocytes % (A) 28.3 %; MCH 31.2 pg (27.0-32.0); MCHC 34.2 g/dL (32.0-37.0); MCV 91.2 fL (80.0-97.0); Monocytes # (A) 0.87 10*3/uL (0.20-1.00); Monocytes % (A) 8.1 %; Neutrophils # (A) 6.22 10*3/uL (1.80-7.70); Neutrophils % (A) 58.0 %; Platelet Count 248 10*3/uL (140-440); RBC 3.88 10*6/uL (4.10-5.20); RDW 12.1 % (11.5-14.5); WBC 10.72 10*3/uL (4.50-10.00)
[2025-04-17 07:46] LABS: African American GFR (CKD) >90 (>60 ml/min/1.73 sqM); Anion Gap 7 mmol/L; Blood Urea Nitrogen 4 mg/dL (7-17); Calcium 8.3 mg/dL (8.4-10.2); Carbon Dioxide 17 mmol/L (22-30); Chloride 109 mmol/L (98-107); Glucose 87 mg/dL (74-99); Non-African American GFR(CKD) >90 (>60 ml/min/1.73 sqM); Potassium 4.1 mmol/L (3.5-5.1); Sodium 133 mmol/L (137-145)
[2025-04-17 11:43] LABS: Bilirubin,Urine Negative (Negative); Blood,Urine Negative (Negative); Color,Urine Yellow; Glucose,Urine (UA) Negative (Negative); Ketones,Urine Negative (Negative); Leukocyte Esterase,Urine Negative (Negative); Nitrite,Urine Negative (Negative); PH, Urine 8.0 (5.0-8.0); Protein,Urine Negative (Negative); Specific Gravity,Urine 1.009 (1.001-1.035); Urobilinogen,Urine <2.0 mg/dL (<2.0)
[2025-04-17 13:54] LABS: C. trachomatis,PCR Negative (Negative); N. gonorrhoeae,PCR Negative (Negative)
--- NOTE | 2025-04-17 14:02 | PN ---
PROGRESS NOTE DATE OF SERVICE: 04/17/2025 SUBJECTIVE: This is a 24-year-old woman who was admitted with acute pyelonephritis, had some pain. The patient is on IV Tylenol. No chest pain. No palpitation. PHYSICAL EXAMINATION: VITAL SIGNS: Pulse 75, blood pressure 120/63, and respirations 15. CHEST: Clear to auscultation. CARDIOVASCULAR: S1 and S2. ABDOMEN: Soft. LABORATORY DATA: WBC 10.72. UA is improving. Cultures are showing gram-negative bacilli. ASSESSMENT: 1. Acute pyelonephritis with back pain with failure of outpatient treatment with a gram-negative bacilli. 2. A 13 weeks . 3. History of concussion and compression fracture of the lumbar vertebrae. 4. Anxiety, depression. RECOMMENDATIONS AND DISCUSSION: I recommend to continue current medications and antibiotics, symptomatic treatment. Closely follow. Guarded prognosis. Further recommendations to follow. MMODL / IJN: [id number] /
[2025-04-18] MEDS ORDERED: DOCUSATE 100 MG CAP PO PRN (08:49)
[2025-04-18 14:52] VITALS: BP 129/68; PULSE 74; RESP 15; TEMP 98.2
--- NOTE | 2025-04-20 01:42 | P.DS ---
Providers Date of admission: 04/15/25 17:56 Expected date of discharge: 04/18/25 Attending physician: Silviano Stiles MD Consults: 04/15/25 17:55 Consult Physician Routine Consulting Provider: Lois Dotson Consult Reason/Comments: pyelo, 12 wks preg Do you want consulting provider notified?: Yes, Notify in am Primary care physician: Stated None Hospital Course: Final diagnosis Acute pyelonephritis with back pain with failure of outpatient treatment with E. coli on the cultures, present on admission 13 weeks gestation History of concussion and compression fracture of the lumbar vertebrae Anxiety, depression GI prophylaxis DVT prophylaxis Full code Discharge disposition Patient is being discharged in a stable condition with guarded prognosis to home. Patient will follow-up with Dr. Tera Nair to establish in the outpatient setting upon discharge. Patient is to continue with oral Ceftin twice daily as well as HAND BRAILLE TRANSCRIBER outpatient follow-up as scheduled. Total time taken is greater than 35 minutes. Hospital course This is a 24-year-old female who was recently admitted with failure of outpatient treatment for urinary tract infection. Patient with acute p yelonephritis being closely monitored as patient is also 13 weeks . Patient maintained on IV antibiotics and cultures finalized showing E. coli with sensitivities. Patient will be continued on oral twice daily and close outpatient follow-up. Patient to establish with a primary care provider on discharge. Patient was evaluated by HAND BRAILLE TRANSCRIBER recommending to continue with Currently no reports of chest pain, shortness of breath, or palpitations. Patient is afebrile. No reports of nausea or vomiting and patient is tolerating diet. Patient will be discharged home for the prognosis. Physical exam: Gen: This is a 23-year-old female who is awake, alert and oriented x 3, well- developed HEENT: Head is atraumatic, normocephalic. Pupils equal, round. Sclerae is anicteric. NECK: Supple. No JVD. No lymphadenopathy. No thyromegaly. LUNGS: Clear to auscultation. No wheezes or rhonchi. No intercostal retractions. HEART: Regular rate and rhythm. No murmur. ABDOMEN: Soft. Bowel sounds are present. No masses. No tenderness. EXTREMITIES: No pedal edema. No calf tenderness. NEUROLOGICAL: Patient is awake, alert and oriented x3. Cranial nerves 2 through 12 are grossly intact. Please refer to medication reconciliation sheet for a list of medications. The impression and plan of care has been dictated by Helen Mckeon, Nurse Practitioner as directed. Dr. Korey MD I have performed a history and examination and MDM of this patient, discussed the same with the dictator, and agree with the dictator's assessment and plan as written ,documented as a scribe. Based on total visit time, I have performed more than 50% of the visit. Patient Condition at Discharge: Stable Plan - Discharge Summary New Discharge Prescriptions: New cefuroxime axetiL [Ceftin] 500 mg PO BID 5 Days #10 tab Docusate [Colace] 100 mg PO DAILY PRN cap PRN Reason: Constipation Phenazopyridine [Pyridium] 200 mg PO TID PRN #6 tab PRN Reason: Pain/Discomfort Acetaminophen Tab [Tylenol] 650 mg PO Q6HR PRN tab PRN Reason: Mild Pain Or Fever > 100.5 Continue Pedi Multivit No.25/Folic Acid [Flintstones Multivit Chew Tab] 1 tab PO DAILY Discharge Medication List Pedi Multivit No.25/Folic Acid [Flintstones Multivit Chew Tab] 1 tab PO DAILY 11/15/24 [History] Acetaminophen Tab [Tylenol] 650 mg PO Q6HR PRN tab 04/18/25 [Rx] Docusate [Colace] 100 mg PO DAILY PRN cap 04/18/25 [Rx] Phenazopyridine [Pyridium] 200 mg PO TID PRN #6 tab 04/18/25 [Rx] cefuroxime axetiL [Ceftin] 500 mg PO BID 5 Days #10 tab 04/18/25 [Rx] Follow up Appointment(s)/Referral(s): Marivel Ochoa MD [STAFF PHYSICIAN] - 1 Week Lois Dotson DO [Doctor of Osteopathic Medicine] - 1 Week Patient Instructions/Handouts: Urinary Tract Infection in (DC) Activity/Diet/Wound Care/Special Instructions: Activity limited until follow-up Follow-up with primary care provider to establish Follow-up with HAND BRAILLE TRANSCRIBER Continue taking medications as prescribed Drink water Continue with Pyridium as needed for pain Continue with Tylenol for pain and/or fever Monitor for any fevers Discharge Disposition: HOME SELF-CARE
== END 2025-04-18 16:10 | disposition home or self-care (01) | DRG 832 ==
LOC: EC 13:07 → 4FBP 17:55 → OBSVTOIN 17:56 → 4SSUR 19:31 → 6NMEDSUR 19:45
PROVIDERS: ADMIT Internal Medicine; ATTEND Internal Medicine
DX: O23.01 Infections of kidney in pregnancy, first trimester (principal); N10 Acute pyelonephritis; B96.20 Unspecified Escherichia coli [E. coli] as the cause of diseases classified elsewhere; O99.341 Other mental disorders complicating pregnancy, first trimester; F32.A Depression, unspecified; F41.9 Anxiety disorder, unspecified; Z3A.13 13 weeks gestation of pregnancy; Z87.820 Personal history of traumatic brain injury; Z87.891 Personal history of nicotine dependence; Z87.81 Personal history of (healed) traumatic fracture; Z88.0 Allergy status to penicillin
CPT/HCPCS: 36415; 76770; 76801; 80048; 80053; 81001; 81003; 81025; 84702; 85025; 87040; 87077; 87086; 87186; 87491; 87591; 96361; 96365; 96366; 99285

== ENCOUNTER 2025-05-11 13:02 | Emergency (ER) | payer OTHER ==
[2025-05-11 13:18] VITALS: RESP 17
[2025-05-11] MEDS: SODIUM CHLORIDE 0.9% 1,000 ML IV ONE (13:47)
--- NOTE | 2025-05-11 13:47 | ED ---
General Adult HPI - General Chief complaint: Syncope Stated complaint: Syncope Time Seen by Provider: 05/11/25 13:15 Source: patient, RN notes reviewed, old records reviewed Mode of arrival: ambulatory Limitations: no limitations - History of Present Illness Initial comments: This is a 24-year-old female who presents to the emergency department stating that she is 15 weeks and she was very hot and standing in line and passed out. On the way down patient states she hit her chin and she also hit her belly. Patient complains of some neck pain posteriorly as well as tenderness to her mandible and she complains of some flank pain bilaterally. Patient denies any known vaginal bleeding at this time but she has not yet been to the bathroom. Patient also complains of bilateral lower back pain. Patient denies a headache patient denies any numbness weakness. Patient states she is up-to-date on her tetanus. Patient states that she has passed out many times when she has been hot and somewhat dehydrated - Related Data Home Medications Medication Instructions Recorded Confirmed Pedi Multivit No.25/Folic Acid 1 tab PO DAILY 11/15/24 04/15/25 [Flintstones Multivit Chew Tab] Previous Rx's Medication Instructions Recorded Acetaminophen Tab [Tylenol] 650 mg PO Q6HR PRN tab 04/18/25 Docusate [Colace] 100 mg PO DAILY PRN cap 04/18/25 Phenazopyridine [Pyridium] 200 mg PO TID PRN #6 tab 04/18/25 cefuroxime axetiL [Ceftin] 500 mg PO BID 5 Days #10 tab 04/18/25 Allergies Allergy/AdvReac Type Severity Reaction Status Date / Time Penicillins Allergy Swelling Verified 02/26/25 23:50 Review of Systems ROS Statement: Those systems with pertinent positive or pertinent negative responses have been documented in the HPI. ROS Other: All systems not noted in ROS Statement are negative. Past Medical History Past Medical History: No Reported History Additional Past Medical History / Comment(s): Concussion, compression fracture of lumbar vertebrae History of Any Multi-Drug Resistant Organisms: None Reported Past Surgical History: No Surgical Hx Reported, Section Additional Past Surgical History / Comment(s): strabismus eye surgery Past Anesthesia/Blood Transfusion Reactions: No Reported Reaction Past Psychological History: Anxiety, Depression Smoking Status: Former smoker Past Alcohol Use History: Occasional Past Drug Use History: Marijuana - Past Family History Mother Family Medical History: No Reported History General Exam - General Exam Comments Initial Comments: GENERAL: Patient is well-developed and well-nourished. Patient is nontoxic and well- hydrated and is in mild distress. ENT: Neck is soft and supple. No significant lymphadenopathy is noted. Oropharynx is clear. Moist mucous membranes. Neck has full range of motion without el iciting any pain. EYES: The sclera were anicteric and conjunctiva were pink and moist. Extraocular movements were intact and pupils were equal round and reactive to light. Eyelids were unremarkable. PULMONARY: Unlabored respirations. Good breath sounds bilaterally. No audible rales rhonchi or wheezing was noted. CARDIOVASCULAR: There is a regular rate and rhythm without any murmurs gallops or rubs. ABDOMEN: Soft and nontender with normal bowel sounds. SKIN: Patient has a 1 cm laceration below the mandible on the right NEUROLOGIC: Patient is alert and oriented x3. Cranial nerves II through XII are grossly intact. Motor and sensory are also intact. Normal speech, volume and content. Symmetrical smile. MUSCULOSKELETAL: Normal extremities with adequate strength and full range of motion. No lower extremity swelling or edema. No calf tenderness. LYMPHATICS: No significant lymphadenopathy is noted9 PSYCHIATRIC: Normal psychiatric evaluation. Limitations: no limitations Course Vital Signs 05/11/25 13:13 Temperature 97.1 F L Pulse Rate 72 Respiratory 17 Rate Blood Pressure 120/78 O2 Sat by Pulse 99 Oximetry Procedures - Laceration Laceration #1 Consent Obtained: verbal consent Indication: laceration Site: face Description: linear Depth: simple, single layer Size of Sutures: other (Dermabond) Technique: simple, interrupted Patient Tolerated Procedure: well Medical Decision Making - Medical Decision Making EKG is interpreted by myself. EKG shows a sinus rhythm at 64 bpm WV interval 116 QRS is 86 QT interval is 3 9 QTc is 398. Patient EKG shows no ST segment elevation or depression. Was pt. sent in by a medical professional or institution (PRIYA Mendoza, CONCRETE FINISHING MACHINE OPERATOR, urgent care, hospital, or detention...) When possible be specific @ -[No] Did you speak to anyone other than the patient for history (EMS, parent, family, police, friend...)? What history was obtained from this source @ -[No] Did you review nursing and triage notes (agree or disagree)? Why? @ -I reviewed and agree with nursing and triage notes Were old charts reviewed (outside hosp., previous admission, EMS record, old EKG, old radiological studies, urgent care reports/EKG's, detention records)? Report findings @ -No old charts were reviewed Differential Diagnosis? @ -Differential Syncope: Valvular disease, hypertrophic cardiomyopathy, pulmonary embolism, tamponade, tachycardia, bradycardia, [place], hypovolemia, hemorrhage, dissection, anemia, intracranial hemorrhage, seizure, hypoglycemia, carbon monoxide poisoning, this is not meant to be an all-inclusive list. EKG interpreted by me (3pts min.). @ -As above X-rays interpreted by me (1pt min.). @ -None done CT interpreted by me (1pt min.). @ -CT of the C-spine and facial bones shows no acute abnormality U/S interpreted by me (1pt. min.). @ -Ultrasound showed no acute abnormality What testing was considered but not performed or refused? (CT, X-rays, U/S, labs)? Why? @ -None What meds were considered but not given or refused? Why? @ -None Did you discuss the management of the patient with other professionals (professionals i.e. , PA, CONCRETE FINISHING MACHINE OPERATOR, lab, RT, psych nurse, social media content specialist, corporate lawyer, teacher, asset protection officer, case management rn)? Give summary @ -No Was smoking cessation discussed for >3mins.? @ -No Was critical care preformed (if so, how long)? @ -No Were there social determinants of health that impacted care today? How? (Homelessness, low income, unemployed, alcoholism, drug addiction, transportation, low edu. Level, literacy, decrease access to med. care, half-way, rehab)? @ -No Was there de-escalation of care discussed even if they declined (Discuss DNR or withdrawal of care, Hospice)? DNR status @ -No What co-morbidities impacted this encounter? (DM, HTN, Smoking, COPD, CAD, Cancer, CVA, ARF, Chemo, Hep., AIDS, mental health diagnosis, sleep apnea, morbid obesity)? @ -None Was patient admitted / discharged? Hospital course, mention meds given and route, prescriptions, significant lab abnormalities, going to OR and other pertinent info. @ -Patient had a superficial laceration to the inferior aspect of the right side of her mandible which was glued together with Dermabond. Undiagnosed new problem with uncertain prognosis? @ -No Drug Therapy requiring intensive monitoring for toxicity (Heparin, Nitro, In sulin, Cardizem)? @ -No Were any procedures done? @ -No Diagnosis/symptom? @ -Chin laceration Acute, or Chronic, or Acute on Chronic? @ -Acute Uncomplicated (without systemic symptoms) or Complicated (systemic symptoms)? @ -Uncomplicated Side effects of treatment? @ -No Exacerbation, Progression, or Severe Exacerbation? @ -No Poses a threat to life or bodily function? How? (Chest pain, [place], [place], pneumonia, PE, COPD, DKA, ARF, appy, cholecystitis, CVA, Diverticulitis, Homicidal, Suicidal, threat to staff... and all critical care pts) @ -No Diagnosis/symptom? @ -Facial contusion Acute, or Chronic, or Acute on Chronic? @ -Acute Uncomplicated (without systemic symptoms) or Complicated (systemic symptoms)? @ -Uncomplicated Side effects of treatment? @ -None Exacerbation, Progression, or Severe Exacerbation] @ -No Poses a threat to life or bodily function? @ -No Diagnosis/symptom? @ -Cervical strain Acute, or Chronic, or Acute on Chronic? @ -Acute Uncomplicated (without systemic symptoms) or Complicated (systemic symptoms)? @ -Uncomplicated Side effects of treatment? @ -None Exacerbation, Progression, or Severe Exacerbation] @ -No Poses a threat to life or bodily function? @ -No Diagnosis/symptom? @ -Abdominal pain Acute, or Chronic, or Acute on Chronic? @ -Acute Uncomplicated (without systemic symptoms) or Complicated (systemic symptoms)? @ -Complicated Side effects of treatment? @ -None Exacerbation, Progression, or Severe Exacerbation] @ -No Poses a threat to life or bodily function? @ -No Diagnosis/symptom? @ -Syncope Acute, or Chronic, or Acute on Chronic? @ -Acute Uncomplicated (without systemic symptoms) or Complicated (systemic symptoms)? @ -Complicated Side effects of treatment? @ -None Exacerbation, Progression, or Severe Exacerbation] @ -No Poses a threat to life or bodily function? @ -No - Lab Data Result diagrams: 05/11/25 13:45 05/11/25 13:45 Lab Results 05/11/25 05/11/25 Range/Units 13:45 13:45 WBC 10.23 H (4.50-10.00) 10*3/uL RBC 4.40 (4.10-5.20) 10*6/uL Hgb 13.6 (12.0-15.0) g/dL Hct 39.4 (37.2-46.3) % MCV 89.5 (80.0-97.0) fL MCH 30.9 (27.0-32.0) pg MCHC 34.5 (32.0-37.0) g/dL Plt Count 250 (140-440) 10*3/uL MPV 9.6 (9.5-12.2) fL Immature Gran % (Auto) 0.3 % Neutrophils % 63.9 % Lymphocytes % 26.0 % Monocytes % 6.9 % Eosinophils % 2.1 % Basophils % 0.8 % Immature Gran # 0.03 (0.00-0.04) 10*3/uL Neutrophils # 6.54 (1.80-7.70) 10*3/uL Lymphocytes # 2.66 (0.90-5.00) 10*3/uL Monocytes # 0.71 (0.20-1.00) 10*3/uL Eosinophils # 0.21 (0.04-0.35) 10*3/uL Basophils # 0.08 (0.00-0.10) 10*3/uL Sodium 135 L (137-145) mmol/L Potassium 4.8 (3.5-5.1) mmol/L Chloride 104 (98-107) mmol/L Carbon Dioxide 17 L (22-30) mmol/L Anion Gap 14 mmol/L BUN 5 L (7-17) mg/dL Creatinine 0.44 L (0.52-1.04) mg/dL Est GFR (CKD-EPI)AfAm >90 (>60 ml/min/1.73 sqM) Est GFR (CKD-EPI)NonAf >90 (>60 ml/min/1.73 sqM) Glucose 83 (74-99) mg/dL Calcium 9.1 (8.4-10.2) mg/dL Total Bilirubin 1.1 (0.2-1.3) mg/dL AST 33 (14-36) U/L ALT 17 (4-34) U/L Alkaline Phosphatase 103 (38-126) U/L Total Protein 7.4 (6.3-8.2) g/dL Albumin 4.1 (3.5-5.0) g/dL Disposition Clinical Impression: Syncope, Chin laceration, Cervical strain, acute, Abdominal pain Disposition: HOME SELF-CARE Instructions (If sedation given, give patient instructions): Abdominal Pain in (ED), Skin Adhesive Care (ED), Syncope (ED) Is patient prescribed a controlled substance at d/c from ED?: No Referrals: None,Stated [Primary Care Provider] - 1-2 days Time of Disposition: 15:34
[2025-05-11 14:28] LABS: Basophils # (A) 0.08 10*3/uL (0.00-0.10); Basophils % (A) 0.8 %; Eosinophils # (A) 0.21 10*3/uL (0.04-0.35); Eosinophils % (A) 2.1 %; HCT 39.4 % (37.2-46.3); HGB 13.6 g/dL (12.0-15.0); Lymphocytes # (A) 2.66 10*3/uL (0.90-5.00); Lymphocytes % (A) 26.0 %; MCH 30.9 pg (27.0-32.0); MCHC 34.5 g/dL (32.0-37.0); MCV 89.5 fL (80.0-97.0); Monocytes # (A) 0.71 10*3/uL (0.20-1.00); Monocytes % (A) 6.9 %; Neutrophils # (A) 6.54 10*3/uL (1.80-7.70); Neutrophils % (A) 63.9 %; Platelet Count 250 10*3/uL (140-440); RBC 4.40 10*6/uL (4.10-5.20); RDW 11.9 % (11.5-14.5); WBC 10.23 10*3/uL (4.50-10.00)
[2025-05-11] MEDS: ACETAMINOPHEN TAB 500 MG TAB PO STA (14:34)
[2025-05-11] MEDS: TOPICAL SKIN ADHESIVE 1 EACH AMP TOPICAL ONE (14:35)
--- NOTE | 2025-05-11 14:44 | CT ---
EXAMINATION TYPE: CT facial bones wo con CT DLP: 480.4 mGycm, Automated exposure control for dose reduction was used. DATE OF EXAM: 05/11/2025 2:34 PM COMPARISON: CT brain 03/22/2021. CLINICAL INDICATION:Female, 24 years old with history of trauma; PHH, trauma. Syncopal episode hunter ng on jaw, pain TECHNIQUE: Multiple unenhanced axial CT images were obtained of the facial bones soft tissue and bone windows. Coronal, axial and sagittal reformatted images were also provided in soft tissue and bone windows and submitted for interpretation. FINDINGS: Dental amalgam streak artifact which limits evaluation. There is no evidence of fracture, subluxation, dislocation, or significant soft tissue swelling. The orbital contents are unremarkable. The temporal-mandibular joints appear symmetric. The mastoid air c ells are clear. Minimal mucosal thickening in the inferior left maxillary sinus and ethmoid sinuses. The remaining visualized paranasal sinuses are clear. IMPRESSION: No visualized acute facial bone fracture. [facility], , 05/11/2025 2:42 PM
--- NOTE | 2025-05-11 14:47 | CT ---
EXAMINATION TYPE: CT cervical spine wo con CT DLP: 837.1 mGycm, Automated exposure control for dose reduction was used. DATE OF EXAM: 05/11/2025 2:33 PM COMPARISON: CT brain C-spine 08/16/2020 CLINICAL INDICATION:Female, 24 years old with history of trauma; PHH, trauma. Syncopal episode hunter ng on jaw, pain TECHNIQUE: Axial CT images from the skull base to the inferior aspect of T2 we obtained without intra venous contrast. Coronal and sagittal reformatted images were also reviewed. FINDINGS: Fracture: None. Osseous structures: Fusion of the left C2-C3 facet joint. Vertebral alignment: Within normal limits. Spinal canal/Neural Foramina: No evidence of significant spinal canal narrowing. No evidence for sign ificant neural foraminal stenosis.Neck soft tissues: Prevertebral soft tissues are within normal limi ts. Other: The airway is patent. The lung apices are clear. IMPRESSION: No evidence of cervical spine fracture. [facility], , 05/11/2025 2:45 PM
[2025-05-11 14:59] LABS: African American GFR (CKD) >90 (>60 ml/min/1.73 sqM); Albumin 4.1 g/dL (3.5-5.0); Anion Gap 14 mmol/L; Blood Urea Nitrogen 5 mg/dL (7-17); Calcium 9.1 mg/dL (8.4-10.2); Carbon Dioxide 17 mmol/L (22-30); Chloride 104 mmol/L (98-107); Glucose 83 mg/dL (74-99); Non-African American GFR(CKD) >90 (>60 ml/min/1.73 sqM); Sodium 135 mmol/L (137-145); Total Protein 7.4 g/dL (6.3-8.2)
[2025-05-11 15:08] LABS: ALT 17 U/L (4-34); AST 33 U/L (14-36); Alkaline Phosphatase 103 U/L (38-126); Potassium 4.8 mmol/L (3.5-5.1)
--- NOTE | 2025-05-11 15:22 | US ---
EXAMINATION TYPE: US OB limited DATE OF EXAM: 05/11/2025 COMPARISON: NONE CLINICAL INDICATION: Female, 24 years old with history of Trauma; Patient passed out and fell on escobedo y. TECHNIQUE: Transabdominal (TA) FINDINGS: GESTATIONAL AGE / DATING Physician Established: (14 weeks/5 days) EDC: 11/04/2025 No growth performed on today?s study per ordering physician SURVEY PLACENTA: Anterior PREVIA: No Previa. The caudal placental margin measures 2.4 cm from the internal cervical os. Ultrasound evidence of abruption? No. ALESSANDRO: 12.7 cm Normal Ultrasound evidence of premature rupture of membranes? No HEART RATE: 143 bpm RHYTHM: Normal IMPRESSION: Anterior placenta, low-lying measuring 2.4 cm from the internal cervical os. No sonographic features of placental abruption. Single live intrauterine . [facility], , 05/11/2025 3:19 PM
[2025-05-11 15:43] VITALS: BP 116/70; TEMP 98.1
[2025-05-12] VITALS: PULSE 71
== END 2025-05-11 15:40 | disposition home or self-care (01) ==
LOC: EC 13:02
DX: O9A.212 Injury, poisoning and certain other consequences of external causes complicating pregnancy, second trimester (principal); S01.81XA Laceration without foreign body of other part of head, initial encounter; S16.1XXA Strain of muscle, fascia and tendon at neck level, initial encounter; R55 Syncope and collapse; Z87.891 Personal history of nicotine dependence; Z88.0 Allergy status to penicillin; X58.XXXA Exposure to other specified factors, initial encounter; Z3A.15 15 weeks gestation of pregnancy
CPT/HCPCS: 12011; 36415; 70486; 72125; 76815; 80053; 85025; 93005; 96360; 99285